=== PATIENT | female | born 1975 | race Hispanic/Latino ===

== ENCOUNTER 2018-02-12 06:03 | Emergency (ER) | payer SELFPAY ==
[2018-02-12] MEDS ORDERED: LIDOCAINE 1% MPF 5 ML VIAL ONE (06:25)
[2018-02-12] MEDS ORDERED: SMZ./TMP. 800/160 MG TABLET ONE (06:55)
[2018-02-12] MEDS ORDERED: PROMETHAZINE 25 MG TABLET ONE (06:55)
[2018-02-12] MEDS ORDERED: MEPERIDINE HCL 50 MG/ML AMP ONE (06:55)
--- NOTE | 2018-02-12 06:57 | ER ---
Nurse's Notes [facility] Name: Antoinette Sarmiento Age: 42 yrs Sex: Female : 1975 Arrival Date: 02/12/2018 Time: 06:08 Bed 18 Private MD: Diagnosis: Cutaneous abscess of head [any part, except face] Presentation: 02/12 06:13 Presenting complaint: Patient states: abscess to base of skull x 6 days. Purulent aa1 drainage noted. Transition of care: patient was not received from another setting of care. Onset of symptoms was February 05, 2018. Risk Assessment: Do you want to hurt yourself or someone else? Patient reports no desire to harm self or others. Initial Sepsis Screen: Does the patient meet any 2 criteria? No. Patient's initial sepsis screen is negative. Does the patient have a suspected source of infection? Yes: Skin breakdown/wound. Care prior to arrival: None. 06:13 Method Of Arrival: Ambulatory aa1 06:13 Acuity: EUGENE 3 aa1 Historical: - Allergies: 06:14 No Known Allergies; aa1 - Home Meds: 06:14 None [Active]; aa1 - PMHx: 06:14 None; aa1 - PSHx: 06:14 None; aa1 - Immunization history:: Adult Immunizations unknown. - Social history:: Smoking status: Patient/guardian denies using tobacco. - Ebola Screening: : No symptoms or risks identified at this time. Screenin:26 Abuse screen: Denies threats or abuse. Denies injuries from another. Nutritional lp1 screening: No deficits noted. Tuberculosis screening: No symptoms or risk factors identified. Fall Risk None identified. Assessment: 06:25 General: Appears uncomfortable, Behavior is appropriate for age. Pain: Complains of lp1 pain in base of the skull Pain currently is 10 out of 10 on a pain scale. Quality of pain is described as burning. Neuro: Level of Consciousness is awake, alert, obeys commands. Cardiovascular: Patient's skin is warm and dry. Respiratory: Respiratory effort is even, unlabored. GI: No signs and/or symptoms were reported involving the gastrointestinal system. : No signs and/or symptoms were reported regarding the genitourinary system. EENT: No signs and/or symptoms were reported regarding the EENT system. Derm: Abscess located on base of the skull is half dollar sized. Musculoskeletal: Circulation, motion, and sensation intact. Vital Signs: 06:14 BP 195 / 93; Pulse 91; Resp 18; Temp 98.7; Pulse Ox 98% ; Weight 108.86 kg; Height 5 aa1 ft. 2 in. (157.48 cm); Pain 10/10; 06:26 BP 174 / 98; Pulse 92; Resp 18; Pulse Ox 99% on R/A; lp1 06:14 Body Mass Index 43.90 (108.86 kg, 157.48 cm) aa1 ED Course: 06:08 Patient arrived in ED. al2 06:12 Taiwo Clark PA is PHCP. jr8 06:12 Osiel Ramsay MD is Attending Physician. jr8 06:14 Triage completed. aa1 06:14 Arm band placed on right wrist. Patient placed in an exam room, on a stretcher. aa1 06:18 Opal Zambrano, RN is Primary Nurse. lp1 06:26 Patient has correct armband on for positive identification. lp1 06:38 Assist provider with I \T\ D: of an abscess on posterior neck Set up I\T\D tray. Performed lp 1 by Taiwo YA Culture sent to lab. Wound packed. iodoform gauze. 08:30 Patient did not have IV access during this emergency room visit. ph Administered Medications: 06:38 Drug: Lidocaine (1 %) 1 vials Volume: 5 ml; Route: Infiltration; lp1 08:00 Follow up: Response: No adverse reaction ph 07:06 Drug: Bactrim (160 mg-800 mg (DS) 1 tablet Route: PO; lp1 08:00 Follow up: Response: No adverse reaction ph 07:06 Drug: Demerol 50 mg Route: IM; Site: right deltoid; lp1 08:00 Follow up: Response: No adverse reaction ph 07:06 Drug: Phenergan 25 mg Route: PO; lp1 08:00 Follow up: Response: No adverse reaction ph Outcome: 06:57 Discharge ordered by . jr8 07:52 Patient left the ED. ph 07:52 Discharged to home ambulatory. ph 07:52 Condition: good 07:52 Discharge instructions given to patient, Instructed on discharge instructions, follow up and referral plans. medication usage, Demonstrated understanding of instructions, follow-up care, medications, Prescriptions given X 2. Addendum: 02/15/2018 07:14 Addendum: Culture Results: Positive wound culture. No further action required. Bacteria s s sensitive to prescribed antibiotic. Signatures: Ruma Young, RN RN aa1 Madhavi Albert RN RN ss Opal Zambrano RN RN lp1 Taiwo Clark PA PA jr8 Tierra Osullivan RN RN [facility], Mireille mora
--- NOTE | 2018-02-12 06:57 | EDPHYS ---
Physician Documentation [facility] Name: Antoinette Sarmiento Age: 42 yrs Sex: Female : 1975 Arrival Date: 02/12/2018 Time: 06:08 Bed 18 Private MD: ED Physician Osiel Ramsay HPI: 02/12 07:22 This 42 yrs old Female presents to ER via Ambulatory with complaints of jr8 Abscess. 07:22 The patient presents with an abscess of the scalp. Description: The affected area is jr8 moderate sized, well demarcated, draining, erythematous, swollen, tense, warm. Onset: The symptoms/episode began/occurred gradually, 1 week(s) ago. Possible cause(s): unknown. Associated signs and symptoms: The patient has no apparent associated signs or symptoms. Modifying factors: the symptoms are alleviated by nothing, the symptoms are aggravated by pressure, squeezing the lesion and expressing the contents, touching. Severity of symptoms: At their worst the symptoms were moderate, in the emergency department the symptoms are unchanged. The patient has not experienced similar symptoms in the past. The patient has not recently seen a physician. Historical: - Allergies: 06:14 No Known Allergies; aa1 - Home Meds: 06:14 None [Active]; aa1 - PMHx: 06:14 None; aa1 - PSHx: 06:14 None; aa1 - Immunization history:: Adult Immunizations unknown. - Social history:: Smoking status: Patient/guardian denies using tobacco. - Ebola Screening: : No symptoms or risks identified at this time. ROS: 07:22 Eyes: Negative for injury, pain, redness, and discharge, ENT: Negative for injury, jr8 pain, and discharge, Neck: Negative for injury, pain, and swelling, Cardiovascular: Negative for chest pain, palpitations, and edema, Respiratory: Negative for shortness of breath, cough, wheezing, and pleuritic chest pain, Abdomen/GI: Negative for abdominal pain, nausea, vomiting, diarrhea, and constipation, Back: Negative for injury and pain, MS/Extremity: Negative for injury and deformity, Neuro: Negative for headache, weakness, numbness, tingling, and seizure. 07:41 Skin: Positive for abscess. jr8 Exam: 07:40 Head/Face: Normocephalic, atraumatic. Eyes: Pupils equal round and reactive to light, jr8 extra-ocular motions intact. Lids and lashes normal. Conjunctiva and sclera are non-icteric and not injected. Cornea within normal limits. Periorbital areas with no swelling, redness, or edema. ENT: Nares patent. No nasal discharge, no septal abnormalities noted. Tympanic membranes are normal and external auditory canals are clear. Oropharynx with no redness, swelling, or masses, exudates, or evidence of obstruction, uvula midline. Mucous membranes moist. Neck: Trachea midline, no thyromegaly or masses palpated, and no cervical lymphadenopathy. Supple, full range of motion without nuchal rigidity, or vertebral point tenderness. No Meningismus. Cardiovascular: Regular rate and rhythm with a normal S1 and S2. No gallops, murmurs, or rubs. Normal PMI, no JVD. No pulse deficits. Respiratory: Lungs have equal breath sounds bilaterally, clear to auscultation and percussion. No rales, rhonchi or wheezes noted. No increased work of breathing, no retractions or nasal flaring. Abdomen/GI: Soft, non-tender, with normal bowel sounds. No distension or tympany. No guarding or rebound. No evidence of tenderness throughout. Back: No spinal tenderness. No costovertebral tenderness. Full range of motion. MS/ Extremity: Pulses equal, no cyanosis. Neurovascular intact. Full, normal range of motion. Neuro: Awake and alert, GCS 15, oriented to person, place, time, and situation. Cranial nerves II-XII grossly intact. Motor strength 5/5 in all extremities. Sensory grossly intact. Cerebellar exam normal. Normal gait. 07:40 Skin: abscess, that is moderate sized, of the scalp and base of the skull, with drainage, with fluctuance. Vital Signs: 06:14 BP 195 / 93; Pulse 91; Resp 18; Temp 98.7; Pulse Ox 98% ; Weight 108.86 kg; Height 5 aa1 ft. 2 in. (157.48 cm); Pain 10/10; 06:26 BP 174 / 98; Pulse 92; Resp 18; Pulse Ox 99% on R/A; lp1 06:14 Body Mass Index 43.90 (108.86 kg, 157.48 cm) aa1 Procedures: 06:52 I \T\ D: Incision and drainage was performed for an abscess of the base of the skull jr8 Prepped with Betadine, Anesthetized with 2 ml's 1% Lidocaine. Incised with #11 blade. Drained moderate amount purulent fluid. bloody fluid. Loculations removed. Cultures obtained. Abscess cavity explored. Packed with iodoform gauze, Dressing: sterile 4x4 gauze, the patient tolerated the procedure well. MDM: 06:12 Patient medically screened. jr8 06:53 Data reviewed: vital signs, nurses notes, lab test result(s), and as a result, I will jr8 discharge patient. Data interpreted: Pulse oximetry: on room air is 99 %. Interpretation: normal. Counseling: I had a detailed discussion with the patient and/or guardian regarding: the historical points, exam findings, and any diagnostic results supporting the discharge/admit diagnosis, the need for outpatient follow up, a family practitioner, to return to the emergency department if symptoms worsen or persist or if there are any questions or concerns that arise at home. 02/12 06:27 Order name: Wound Culture lp1 Administered Medications: 06:38 Drug: Lidocaine (1 %) 1 vials Volume: 5 ml; Route: Infiltration; lp1 08:00 Follow up: Response: No adverse reaction ph 07:06 Drug: Bactrim (160 mg-800 mg (DS) 1 tablet Route: PO; lp1 08:00 Follow up: Response: No adverse reaction ph 07:06 Drug: Demerol 50 mg Route: IM; Site: right deltoid; lp1 08:00 Follow up: Response: No adverse reaction ph 07:06 Drug: Phenergan 25 mg Route: PO; lp1 08:00 Follow up: Response: No adverse reaction ph Disposition: 19:20 Co-signature as Attending Physician, Osiel Ramsay MD. rn Disposition: 02/12/18 06:57 Discharged to Home. Impression: Cutaneous abscess of head [any part, except face]. - Condition is Stable. - Discharge Instructions: Abscess, Incision and Drainage. - Prescriptions for Tylenol- Codeine #3 300-30 mg Oral Tablet - take 2 tablets by ORAL route every 6 hours As needed; 20 tablet. Bactrim DS 800- 160 mg Oral Tablet - take 1 tablet by ORAL route every 12 hours for 10 days; 20 tablet. - Medication Reconciliation Form, Thank You Letter, Antibiotic Education, Prescription Opioid Use, Work release form form. - Follow up: Emergency Department; When: 48 Hours; Reason: Recheck today's complaints, Continuance of care, Re-evaluation by your physician. - Problem is new. - Symptoms have improved. Signatures: Dispatcher [employer] EDMS Ruma Young, LORNA RN aa1 Osiel Ramsay MD MD rn Pena, Laura, RN RN lp1 Taiwo Clark PA PA jr8 Tierra Osullivan RN RN ph Corrections: (The following items were deleted from the chart) 07:41 07:22 Eyes: Negative for injury, pain, redness, and discharge, ENT: Negative for jr8 injury, pain, and discharge, Neck: Negative for injury, pain, and swelling, Cardiovascular: Negative for chest pain, palpitations, and edema, Respiratory: Negative for shortness of breath, cough, wheezing, and pleuritic chest pain, Back: Negative for injury and pain, MS/Extremity: Negative for injury and deformity, Skin: Negative for injury, rash, and discoloration, Neuro: Negative for headache, weakness, numbness, tingling, and seizure, jr8 07:41 07:22 Abdomen/GI: Positive for abdominal pain, nausea and vomiting, Negative for jr8 diarrhea, abdominal distension, anorexia, dysphagia, hematemesis, black/tarry stool, rectal pain, rectal bleeding, bowel incontinence, flatulence, jr8 07:41 07:22 Eyes: Pupils equal round and reactive to light, extra-ocular motions intact. Lids jr8 and lashes normal. Conjunctiva and sclera are non-icteric and not injected. Cornea within normal limits. Periorbital areas with no swelling, redness, or edema. ENT: Nares patent. No nasal discharge, no septal abnormalities noted. Tympanic membranes are normal and external auditory canals are clear. Oropharynx with no redness, swelling, or masses, exudates, or evidence of obstruction, uvula midline. Mucous membranes moist. Neck: Trachea midline, no thyromegaly or masses palpated, and no cervical lymphadenopathy. Supple, full range of motion without nuchal rigidity, or vertebral point tenderness. No Meningismus. Cardiovascular: Regular rate and rhythm with a normal S1 and S2. No gallops, murmurs, or rubs. Normal PMI, no JVD. No pulse deficits. Respiratory: Lungs have equal breath sounds bilaterally, clear to auscultation and percussion. No rales, rhonchi or wheezes noted. No increased work of breathing, no retractions or nasal flaring. Back: No spinal tenderness. No costovertebral tenderness. Full range of motion. Skin: Warm, dry with normal turgor. Normal color with no rashes, no lesions, and no evidence of cellulitis. MS/ Extremity: Pulses equal, no cyanosis. Neurovascular intact. Full, normal range of motion. Neuro: Awake and alert, GCS 15, oriented to person, place, time, and situation. Cranial nerves II-XII grossly intact. Motor strength 5/5 in all extremities. Sensory grossly intact. Cerebellar exam normal. Normal gait. 8 07:41 07:22 Abdomen/GI: Inspection: abdomen appears normal, scar(s), are noted in the jr8 anterior aspect of right lateral abdomen and anterior aspect of left lateral abdomen, Bowel sounds: active, all quadrants, Palpation: soft, in all quadrants, moderate abdominal tenderness, in the right upper quadrant, mid abdominal, mass, is not appreciated, rebound tenderness, is not appreciated, voluntary guarding, is not appreciated, involuntary guarding, is not appreciated, no appreciated organomegaly, Indicators: McBurney's point is not tender, Abernathy's sign is negative, Rovsing's sign is negative, jr8 07:52 06:57 02/12/2018 06:57 Discharged to Home. Impression: Cutaneous abscess of head [any ph part, except face]. Condition is Stable. Forms are Medication Reconciliation Form, Thank You Letter, Antibiotic Education, Prescription Opioid Use. Follow up: Emergency Department; When: 48 Hours; Reason: Recheck today's complaints, Continuance of care, Re-evaluation by your physician. Problem is new. Symptoms have improved. jr8
== END 2018-02-12 07:52 | disposition home or self-care (01) ==
LOC: ER 06:03
PROC: 0H90XZZ Drainage of Scalp Skin, External Approach (ICD-10-PCS; principal; 2018-02-12)
DX: L02.811 Cutaneous abscess of head [any part, except face] (principal)
CPT/HCPCS: 87070; 87077; 87186; 87205; 96372; 99284; J2175

== ENCOUNTER 2018-02-14 08:32 | Emergency (ER) | payer SELFPAY ==
--- NOTE | 2018-02-14 09:48 | EDPHYS ---
Physician Documentation [facility] Name: Antoinette Sarmiento Age: 42 yrs Sex: Female : 1975 Arrival Date: 02/14/2018 Time: 08:48 Bed 20 Private MD: None, None ED Physician Adi Garcia HPI: 02/14 08:54 This 42 yrs old Female presents to ER via Unassigned with complaints of kav Abscess Recheck. 09:24 Patient presents to ED for recheck of: abscess. The affected area is on the base of the kav skull. Previous treatment: The patient was initially treated 2 day(s) ago, the care was rendered at [facility], Treatment type: The patient's original treatment included an I\\T\\D, Outpatient prescription(s): The patient was given prescription(s) for Bactrim. . 09:37 The patient has experienced similar episodes in the past, several times. The patient kav has been recently seen by a physician: The patient has been recently seen at the [facility] Emergency Department, this week. 09:38 Progress: The patient reports mild improvement. kav Historical: - Allergies: 09:22 No Known Allergies; hb - Home Meds: 09:22 None [Active]; hb - PMHx: 09:22 None; hb - PSHx: 09:22 None; hb - Immunization history:: Adult Immunizations up to date. - Social history:: Smoking status: Patient/guardian denies using tobacco. - Ebola Screening: : No symptoms or risks identified at this time. - Family history:: not pertinent. - Hospitalizations: : No recent hospitalization is reported. - History obtained from: son. ROS: 09:38 Constitutional: Negative for fever, chills, and weight loss, Eyes: Negative for injury, kav pain, redness, and discharge, ENT: Negative for injury, pain, and discharge, Neck: Negative for injury, pain, and swelling, Cardiovascular: Negative for chest pain, palpitations, and edema, Respiratory: Negative for shortness of breath, cough, wheezing, and pleuritic chest pain, Abdomen/GI: Negative for abdominal pain, nausea, vomiting, diarrhea, and constipation, Back: Negative for injury and pain, : Negative for injury, bleeding, discharge, and swelling, MS/Extremity: Negative for injury and deformity, Neuro: Negative for headache, weakness, numbness, tingling, and seizure, Psych: Negative for depression, anxiety, suicide ideation, homicidal ideation, and hallucinations, Allergy/Immunology: Negative for hives, rash, and allergies, Endocrine: Negative for neck swelling, polydipsia, polyuria, polyphagia, and marked weight changes, Hematologic/Lymphatic: Negative for swollen nodes, abnormal bleeding, and unusual bruising. 09:38 Skin: Positive for abscess, of the base of the skull. Exam: 09:38 Constitutional: This is a well developed, well nourished patient who is awake, alert, kav and in no acute distress. Head/Face: Normocephalic, atraumatic. Eyes: Pupils equal round and reactive to light, extra-ocular motions intact. Lids and lashes normal. Conjunctiva and sclera are non-icteric and not injected. Cornea within normal limits. Periorbital areas with no swelling, redness, or edema. ENT: Nares patent. No nasal discharge, no septal abnormalities noted. Tympanic membranes are normal and external auditory canals are clear. Oropharynx with no redness, swelling, or masses, exudates, or evidence of obstruction, uvula midline. Mucous membranes moist. Neck: Trachea midline, no thyromegaly or masses palpated, and no cervical lymphadenopathy. Supple, full range of motion without nuchal rigidity, or vertebral point tenderness. No Meningismus. Chest/axilla: Normal chest wall appearance and motion. Nontender with no deformity. No lesions are appreciated. Cardiovascular: Regular rate and rhythm with a normal S1 and S2. No gallops, murmurs, or rubs. Normal PMI, no JVD. No pulse deficits. Respiratory: Lungs have equal breath sounds bilaterally, clear to auscultation and percussion. No rales, rhonchi or wheezes noted. No increased work of breathing, no retractions or nasal flaring. Abdomen/GI: Soft, non-tender, with normal bowel sounds. No distension or tympany. No guarding or rebound. No evidence of tenderness throughout. Back: No spinal tenderness. No costovertebral tenderness. Full range of motion. MS/ Extremity: Pulses equal, no cyanosis. Neurovascular intact. Full, normal range of motion. Neuro: Awake and alert, GCS 15, oriented to person, place, time, and situation. Cranial nerves II-XII grossly intact. Motor strength 5/5 in all extremities. Sensory grossly intact. Cerebellar exam normal. Normal gait. Psych: Awake, alert, with orientation to person, place and time. Behavior, mood, and affect are within normal limits. 09:38 Skin: abscess, that is moderate sized, with drainage, that is purulent. Vital Signs: 09:21 BP 188 / 98; Pulse 100; Resp 18; Temp 98.2; Pulse Ox 100% on R/A; Pain 8/10; hb Procedures: 09:38 Performed Wound Care: 08/23 " Iodoform gauze approximately 2.5 inches removed from kav abscess area base of scalp. Wound was originally I\\T\\ D and packed with Iodoform Gauze on 02/12/18. Wound was cleansed with normal saline solution and repacked with Iodoform Gauze and dressed with a single band aide. Patient was advised to continue current antibiotic therapy with Bactrim DS and continue current pain medication with Tylenol # 3 as directed. She was advised to take OTC Ibuprofen as needed and as directed for breakthrough pain. Advised to f/u with [facility] in 2 days for further wound care and evaluation.. MDM: 09:24 Medical screening is not applicable. [facility] 09:38 Data reviewed: vital signs, nurses notes, old medical records, wound culture is kav sensitive to current abx therapy: Bactrim DS. Administered Medications: No medications were administered Disposition: 10:37 Co-signature as Attending Physician, Adi Garcia MD I agree with the assessment and kdr plan of care. Disposition: 02/14/18 09:47 Discharged to Home. Impression: Cutaneous abscess of head [any part, except face]. - Condition is Stable. - Discharge Instructions: Abscess. - Medication Reconciliation Form, Thank You Letter, Antibiotic Education, Prescription Opioid Use form. - Follow up: Private Physician; When: 2 - 3 days; Reason: Wound Recheck, Recheck today's complaints, Continuance of care, Re-evaluation by your physician. - Problem is an ongoing problem. - Symptoms have improved. - Notes: f/u with [facility]/PCP in 2-3 days for recheck of wound and repacking of wound and continued care continue current antibiotic therapy: BactrimDS and current pain therapy: Tylenol # 3 as directed Signatures: Adi Garcia MD MD kdr Vern, Katherine, STORYBOARD ARTIST STORYBOARD ARTIST Thuy Rm RN RN Corrections: (The following items were deleted from the chart) 09:40 09:24 Progress: The patient reports excellent improvement in the affected area. There kav has been resolution, improvement, or non-development of any drainage, fever, pain, redness or swelling, kav 10:05 09:47 02/14/2018 09:47 Discharged to Home. Impression: Cutaneous abscess of head [any hb part, except face]. Condition is Stable. Forms are Medication Reconciliation Form, Thank You Letter, Antibiotic Education, Prescription Opioid Use. Follow up: Private Physician; When: 2 - 3 days; Reason: Wound Recheck, Recheck today's complaints, Continuance of care, Re-evaluation by your physician. Problem is an ongoing problem. Symptoms have improved. kav
--- NOTE | 2018-02-14 09:48 | ER ---
Nurse's Notes [facility] Name: Antoinette Sarmiento Age: 42 yrs Sex: Female : 1975 Arrival Date: 02/14/2018 Time: 08:48 Bed 20 Private MD: None, None Diagnosis: Cutaneous abscess of head [any part, except face] Presentation: 02/14 09:20 Presenting complaint: Seen in ED 2 days ago for wound to back of neck, told to come hb back today for wound recheck. Transition of care: patient was not received from another setting of care. Onset of symptoms is unknown. Risk Assessment: Do you want to hurt yourself or someone else? Patient reports no desire to harm self or others. Initial Sepsis Screen: Does the patient meet any 2 criteria? No. Patient's initial sepsis screen is negative. Does the patient have a suspected source of infection? No. Patient's initial sepsis screen is negative. Care prior to arrival: None. 09:20 Method Of Arrival: Ambulatory hb 09:20 Acuity: EUGENE 4 hb Historical: - Allergies: 09:22 No Known Allergies; hb - Home Meds: 09:22 None [Active]; hb - PMHx: 09:22 None; hb - PSHx: 09:22 None; hb - Immunization history:: Adult Immunizations up to date. - Social history:: Smoking status: Patient/guardian denies using tobacco. - Ebola Screening: : No symptoms or risks identified at this time. - Family history:: not pertinent. - Hospitalizations: : No recent hospitalization is reported. - History obtained from: son. Screenin:23 Abuse screen: Denies threats or abuse. Denies injuries from another. Nutritional hb screening: No deficits noted. Tuberculosis screening: No symptoms or risk factors identified. Fall Risk None identified. Assessment: 09:22 General: Appears in no apparent distress. Behavior is calm, cooperative. Pain: Pain hb currently is 8 out of 10 on a pain scale. Neuro: Level of Consciousness is awake, alert, obeys commands, Oriented to person, place, time, situation. Cardiovascular: Capillary refill < 3 seconds Patient's skin is warm and dry. Respiratory: Airway is patent Trachea midline Respiratory effort is even, unlabored, Respiratory pattern is regular, symmetrical. Derm: Wound noted Other: back of neck, dressing dry and intact. Vital Signs: 09:21 BP 188 / 98; Pulse 100; Resp 18; Temp 98.2; Pulse Ox 100% on R/A; Pain 8/10; hb ED Course: 08:48 Patient arrived in ED. mr 08:48 None, None is Private Physician. mr 08:54 [facility] kav 08:54 Adi Garcia MD is Attending Physician. kav 09:19 Thuy Salas, RN is Primary Nurse. hb 09:21 Triage completed. hb 09:22 Arm band placed on right wrist. hb 09:23 Patient has correct armband on for positive identification. Bed in low position. Call hb light in reach. Side rails up X 1. 10:04 No provider procedures requiring assistance completed. Patient did not have IV access hb during this emergency room visit. Administered Medications: No medications were administered Outcome: 09:47 Discharge ordered by . kav 10:04 Discharged to home ambulatory, with family. hb 10:04 Condition: stable 10:04 Discharge instructions given to patient, family, Instructed on discharge instructions, follow up and referral plans. medication usage, wound care, Demonstrated understanding of instructions, follow-up care, medications, wound care. 10:05 Patient left the ED. hb Signatures: Angi Claire FNP FNP kav Rivera, Maria Thuy Salas, RN RN hb
== END 2018-02-14 10:05 | disposition home or self-care (01) ==
LOC: ER 08:32
DX: L02.811 Cutaneous abscess of head [any part, except face] (principal)
CPT/HCPCS: 99281

== ENCOUNTER 2020-07-21 04:34 | Emergency (ER) | payer SELFPAY ==
--- NOTE | 2020-07-21 05:11 | ER ---
Nurse's Notes [facility] Name: Antoinette Sarmiento Age: 45 yrs Sex: Female : 1975 Arrival Date: 07/21/2020 Time: 04:40 Bed 4 Private MD: Diagnosis: Acute bronchitis Presentation: 07/21 04:55 Chief complaint: Spouse and/or significant other states: she has fever and cough for 3 mg2 days. Coronavirus screen: Client denies travel out of the [place] in the last 14 days. Client presents with at least one sign or symptom that may indicate coronavirus-19. Provider contacted for isolation considerations. Ebola Screen: No symptoms or risks identified at this time. Initial Sepsis Screen: Does the patient meet any 2 criteria? No. Patient's initial sepsis screen is negative. Does the patient have a suspected source of infection? No. Patient's initial sepsis screen is negative. Risk Assessment: Do you want to hurt yourself or someone else? Patient reports no desire to harm self or others. 04:55 Method Of Arrival: Ambulatory mg2 04:55 Acuity: EUGENE 4 mg2 Triage Assessment: 05:02 General: Appears. mg2 Historical: - Allergies: 04:59 No Known Allergies; mg2 - Home Meds: 04:59 amlodipine oral [Active]; Metformin Oral [Active]; Iron CR Oral [Active]; mg2 - PMHx: 04:59 Diabetes - NIDDM; Hypertension; Anemia; mg2 - PSHx: 04:59 None; mg2 - Immunization history:: Flu vaccine is not up to date. - Social history:: Smoking status: Patient denies any tobacco usage or history of. Patient/guardian denies using alcohol, street drugs, IV drugs, Patient/guardian denies using. - Family history:: not pertinent. Screenin:53 Abuse screen: Denies threats or abuse. Denies injuries from another. Nutritional mg2 screening: No deficits noted. Tuberculosis screening: No symptoms or risk factors identified. Fall Risk None identified. Assessment: 05:52 General: Appears in no apparent distress. comfortable, Behavior is calm, cooperative. mg2 Pain: Denies pain. Neuro: Level of Consciousness is awake, alert, obeys commands, Oriented to person, place, time, situation. Cardiovascular: Capillary refill < 3 seconds Patient's skin is warm and dry. Respiratory: Airway is patent Respiratory effort is even, unlabored, Respiratory pattern is regular, symmetrical. Respiratory: Reports cough that is. GI: No deficits noted. : No signs and/or symptoms were reported regarding the genitourinary system. EENT: No signs and/or symptoms were reported regarding the EENT system. Derm: Skin is intact, is healthy with good turgor, Skin is pink, warm \T\ dry. normal. Musculoskeletal: Circulation, motion, and sensation intact. Capillary refill < 3 seconds. Vital Signs: 04:55 Weight 108.86 kg; Height 5 ft. 6 in. (167.64 cm); mg2 05:10 BP 179 / 92; Pulse 102; Resp 16; Temp 97.5(TE); Pulse Ox 96% on R/A; Pain 0/10; wh 04:55 Body Mass Index 38.74 (108.86 kg, 167.64 cm) mg2 ED Course: 04:40 Patient arrived in ED. cl3 04:54 Pablito Eason MD is Attending Physician. ma2 04:55 Ulises Garza RN is Primary Nurse. mg2 04:56 Triage completed. mg2 04:59 Arm band placed on. mg2 05:53 No provider procedures requiring assistance completed. covis test sent to lab. Patient mg2 did not have IV access during this emergency room visit. 05:54 Patient has correct armband on for positive identification. mg2 Administered Medications: No medications were administered Outcome: 05:10 Discharge ordered by . ma2 05:54 Discharged to home ambulatory. mg2 05:54 Condition: stable 05:54 Discharge instructions given to patient, family, Instructed on discharge instructions, follow up and referral plans. medication usage, Demonstrated understanding of instructions, follow-up care, medications, Prescriptions given X 3. 05:54 Patient left the ED. mg2 Addendum: 07/23/2020 10:02 Addendum: COVID-19 Result: Positive result giiven to ED physician to notify pt. i w Physician: Chase Michelle MD Physician was able to contact pt and pt was notified of positive COVID-19 swab result. Physician answered pt questions. Signatures: Lianna Brandon RN RN Kj Gaviria Pablito Eason MD MD ia2 Ulises Garza RN RN [facility] Sid Barrientos cl3 Corrections: (The following items were deleted from the chart) 07/21 05:02 04:55 Acuity: EUGENE 3 mg2 mg2
--- NOTE | 2020-07-21 05:11 | EDPHYS ---
Physician Documentation [facility] Name: Antoinette Sarmiento Age: 45 yrs Sex: Female : 1975 Arrival Date: 07/21/2020 Time: 04:40 Bed 4 Private MD: ED Physician Pablito Eason HPI: 07/21 05:09 This 45 yrs old Female presents to ER via Ambulatory with complaints of Fever, ma2 Cough. 05:09 The patient reports fever, not measured (subjective). Onset: The symptoms/episode ma2 began/occurred gradually, 1 day(s) ago. Associated signs and symptoms: Pertinent negatives: altered mental status, backache, chills, cough. Severity of symptoms: At their worst the symptoms were mild in the emergency department the symptoms are unchanged. The patient has not experienced similar symptoms in the past. Historical: - Allergies: 04:59 No Known Allergies; mg2 - Home Meds: 04:59 amlodipine oral [Active]; Metformin Oral [Active]; Iron CR Oral [Active]; mg2 - PMHx: 04:59 Diabetes - NIDDM; Hypertension; Anemia; mg2 - PSHx: 04:59 None; mg2 - Immunization history:: Flu vaccine is not up to date. - Social history:: Smoking status: Patient denies any tobacco usage or history of. Patient/guardian denies using alcohol, street drugs, IV drugs, Patient/guardian denies using. - Family history:: not pertinent. ROS: 05:09 Constitutional: Negative for fever, chills, and weight loss. ma2 05:09 All other systems are negative. Exam: 05:09 Constitutional: This is a well developed, well nourished patient who is awake, alert, ma2 and in no acute distress. Head/Face: Normocephalic, atraumatic. Eyes: Pupils equal round and reactive to light, extra-ocular motions intact. Lids and lashes normal. Conjunctiva and sclera are non-icteric and not injected. Cornea within normal limits. Periorbital areas with no swelling, redness, or edema. ENT: Nares patent. No nasal discharge, no septal abnormalities noted. Tympanic membranes are normal and external auditory canals are clear. Oropharynx with no redness, swelling, or masses, exudates, or evidence of obstruction, uvula midline. Mucous membranes moist. Neck: Trachea midline, no thyromegaly or masses palpated, and no cervical lymphadenopathy. Supple, full range of motion without nuchal rigidity, or vertebral point tenderness. No Meningismus. Chest/axilla: Normal chest wall appearance and motion. Nontender with no deformity. No lesions are appreciated. Cardiovascular: Regular rate and rhythm with a normal S1 and S2. No gallops, murmurs, or rubs. Normal PMI, no JVD. No pulse deficits. Respiratory: Lungs have equal breath sounds bilaterally, clear to auscultation and percussion. No rales, rhonchi or wheezes noted. No increased work of breathing, no retractions or nasal flaring. Abdomen/GI: Soft, non-tender, with normal bowel sounds. No distension or tympany. No guarding or rebound. No evidence of tenderness throughout. Back: No spinal tenderness. No costovertebral tenderness. Full range of motion. Skin: Warm, dry with normal turgor. Normal color with no rashes, no lesions, and no evidence of cellulitis. MS/ Extremity: Pulses equal, no cyanosis. Neurovascular intact. Full, normal range of motion. Neuro: Awake and alert, GCS 15, oriented to person, place, time, and situation. Cranial nerves II-XII grossly intact. Motor strength 5/5 in all extremities. Sensory grossly intact. Cerebellar exam normal. Normal gait. Vital Signs: 04:55 Weight 108.86 kg; Height 5 ft. 6 in. (167.64 cm); mg2 05:10 BP 179 / 92; Pulse 102; Resp 16; Temp 97.5(TE); Pulse Ox 96% on R/A; Pain 0/10; wh 04:55 Body Mass Index 38.74 (108.86 kg, 167.64 cm) mg2 MDM: 04:54 Patient medically screened. ma2 05:09 Differential diagnosis: viral Infection, URI, bronchitis, pneumonia gastroenteritis. ma2 Data reviewed: vital signs, nurses notes. Counseling: I had a detailed discussion with the patient and/or guardian regarding: the historical points, exam findings, and any diagnostic results supporting the discharge/admit diagnosis, the presence of at least one elevated blood pressure reading (>120/80) during this emergency department visit, the need for outpatient follow up. Response to treatment: the patient's symptoms have markedly improved after treatment. 07/21 05:11 Order name: SYLVIA ma2 Administered Medications: No medications were administered Disposition: 07/21/20 05:10 Discharged to Home. Impression: Acute bronchitis. - Condition is Stable. - Discharge Instructions: Acute Bronchitis, Adult. - Prescriptions for Zithromax Z- Troy 250 mg Oral Tablet - take 1 tablet by ORAL route as directed for 5 days Day 1 - take two (2) tablets one time. Day 2, 3, 4 , 5 take one (1) tablet once daily.; 6 tablet. Medrol (Troy) 4 mg Oral Tablets, Dose Pack - take 1 tablet by ORAL route as directed - follow package instructions; 1 packet. Albuterol Sulfate 90 mcg/actuation - inhale 1-2 puff by INHALATION route every 4-6 hours; 1 Inhaler. - Medication Reconciliation Form, Thank You Letter, Antibiotic Education, Prescription Opioid Use, Work release form form. - Follow up: Private Physician; When: Tomorrow; Reason: Continuance of care. Signatures: Dispatcher [employer] EDMS Pablito Eason MD MD ma2 Ulises Garza RN RN mg2 Corrections: (The following items were deleted from the chart) 05:54 05:10 07/21/2020 05:10 Discharged to Home. Impression: Acute bronchitis. Condition is mg2 Stable. Forms are Medication Reconciliation Form, Thank You Letter, Antibiotic Education, Prescription Opioid Use. Follow up: Private Physician; When: Tomorrow; Reason: Continuance of care. ma2
== END 2020-07-21 05:54 | disposition home or self-care (01) ==
LOC: ER 04:34
DX: U07.1 COVID-19 (principal); J20.9 Acute bronchitis, unspecified; I10 Essential (primary) hypertension; E11.9 Type 2 diabetes mellitus without complications
CPT/HCPCS: 99282; U0002

== ENCOUNTER 2021-05-25 16:39 | Emergency (ER) | payer SELFPAY ==
--- NOTE | 2021-05-25 19:45 | RAD REPORT ---
EXAM DESCRIPTION: US - Extremity Venous Uni Ltd - 05/25/2021 7:34 pm CLINICAL HISTORY: PAIN Leg swelling and edema. COMPARISON: No comparisons FINDINGS: Left lower extremity venous system was interrogated with Doppler technique. Normal flow, c ompressibility and augmentation was noted. There is no DVT present. IMPRESSION: No evidence of left lower extremity deep venous thrombosis.
--- NOTE | 2021-05-25 20:01 | EDPHYS ---
Physician Documentation [facility] Name: Antoinette Sarmiento Age: 46 yrs Sex: Female : 1975 Arrival Date: 05/25/2021 Time: 16:39 Bed 11 Private MD: ED Physician Chase Michelle HPI: 05/25 19:15 This 46 yrs old Female presents to ER via Wheelchair with complaints of Leg jr8 Pain. 19:15 Onset: The symptoms/episode began/occurred gradually, 3 week(s) ago, and became worse jr8 today. Modifying factors: The symptoms are alleviated by nothing. the symptoms are aggravated by movement, weight bearing. Associated signs and symptoms: The patient has no apparent associated signs or symptoms. Severity of symptoms: At their worst the symptoms were moderate, in the emergency department the symptoms are unchanged. The patient has not experienced similar symptoms in the past. The patient has not recently seen a physician. This is a 46-year-old female patient that presented to the emergency room with left calf pain. Patient stated that she has had on and off pain for the past 3 weeks but that it had become acutely worsened today. Denies trauma.. DESIGNATED BROKER: 17:47 LMP N/A - Post-menopause jl7 Historical: - Allergies: 17:47 No Known Allergies; jl7 - Home Meds: 17:47 amlodipine oral [Active]; Metformin Oral [Active]; Iron CR Oral [Active]; glipizide 5 jl7 mg Oral tab [Active]; - PMHx: 17:47 Anemia; Diabetes - NIDDM; Hypertension; jl7 - PSHx: 17:47 None; jl7 - Immunization history:: Adult Immunizations up to date, Client reports receiving the 2nd dose of the Covid vaccine, Moderna. - Social history:: Smoking status: Patient denies any tobacco usage or history of. ROS: 19:15 Eyes: Negative for injury, pain, redness, and discharge, ENT: Negative for injury, jr8 pain, and discharge, Neck: Negative for injury, pain, and swelling, Cardiovascular: Negative for chest pain, palpitations, and edema, Respiratory: Negative for shortness of breath, cough, wheezing, and pleuritic chest pain, Abdomen/GI: Negative for abdominal pain, nausea, vomiting, diarrhea, and constipation, Back: Negative for injury and pain, Skin: Negative for injury, rash, and discoloration, Neuro: Negative for headache, weakness, numbness, tingling, and seizure. 19:15 MS/extremity: Positive for pain, tenderness, of the left leg. Exam: 19:15 Constitutional: This is a well developed, well nourished patient who is awake, alert, jr8 and in no acute distress. Cardiovascular: Regular rate and rhythm with a normal S1 and S2. No gallops, murmurs, or rubs. Normal PMI, no JVD. No pulse deficits. Respiratory: Lungs have equal breath sounds bilaterally, clear to auscultation and percussion. No rales, rhonchi or wheezes noted. No increased work of breathing, no retractions or nasal flaring. Abdomen/GI: Soft, non-tender, with normal bowel sounds. No distension or tympany. No guarding or rebound. No evidence of tenderness throughout. Back: No spinal tenderness. No costovertebral tenderness. Full range of motion. Skin: Warm, dry with normal turgor. Normal color with no rashes, no lesions, and no evidence of cellulitis. Neuro: Awake and alert, GCS 15, oriented to person, place, time, and situation. Cranial nerves II-XII grossly intact. Motor strength 5/5 in all extremities. Sensory grossly intact. 19:15 Musculoskeletal/extremity: Extremities: grossly normal except: noted in the left calf: tenderness, ROM: no acute changes, Circulation is intact in all extremities. Pulses: noted to be 2+ in the right radial artery, right posterior tibial artery, right dorsalis pedis artery, left radial artery, left posterior tibial artery and left dorsalis pedis artery, Sensation intact. DVT Exam: no swelling, negative Homans' sign noted on exam, no appreciated bluish discoloration, no erythema, no increased warmth, pain, that is mild, of the left leg, tenderness, that is mild, of the left leg, Calves: have equal circumference, are tender, on left. Vital Signs: 17:46 BP 173 / 95; Pulse 80; Resp 17; Temp 98.3; Pulse Ox 99% ; Weight 113.4 kg; Height 5 ft. jl7 6 in. (167.64 cm); Pain 9/10; 20:09 BP 164 / 79; Pulse 84; Resp 18; Temp 98.0; Pulse Ox 99% ; Pain 6/10; dc2 17:46 Body Mass Index 40.35 (113.40 kg, 167.64 cm) jl7 MDM: 18:13 Patient medically screened. jr8 19:59 Data reviewed: vital signs, nurses notes, radiologic studies, ultrasound. Data jr8 interpreted: Pulse oximetry: on room air is 99 %. Interpretation: normal. Counseling: I had a detailed discussion with the patient and/or guardian regarding: the historical points, exam findings, and any diagnostic results supporting the discharge/admit diagnosis, radiology results, the need for outpatient follow up, a orthopedic surgeon, to return to the emergency department if symptoms worsen or persist or if there are any questions or concerns that arise at home. ED course: Frida with patient that there is no evidence of deep venous thrombosis. Pulses present and normal to palpation on affected extremity. Unlikely to be arterial in nature. No infectious signs noted. Most likely musculoskeletal in nature. Recommended anti-inflammatory and to follow-up with PCP. If you persist to call for orthopedic appointment at that time. If worse to come back for further evaluation. Patient good with plan at this time.. 05/25 18:34 Order name: US Extremity Venous Unilateral Ltd; Complete Time: 19:56 jr8 Administered Medications: No medications were administered Disposition: 05/26 07:57 Co-signature as Attending Physician, Chase Michelle MD I agree with the assessment and joão plan of care. Disposition Summary: 05/25/21 20:00 Discharge Ordered Location: Home jr8 Problem: new jr8 Symptoms: have improved jr8 Condition: Stable jr8 Diagnosis - Pain in left lower leg jr8 Followup: jr8 - With: Private Physician - When: 5 - 6 days - Reason: Recheck today's complaints, Continuance of care, Re-evaluation by your physician Discharge Instructions: - Discharge Summary Sheet jr8 - Musculoskeletal Pain jr8 Forms: - Medication Reconciliation Form jr8 - Thank You Letter jr8 - Antibiotic Education jr8 - Prescription Opioid Use jr8 Signatures: Dispatcher [employer] Chase Gruber MD MD cha Roszak, Josh, PA PA jr8 Celestine Gunn, RN RN jl7
--- NOTE | 2021-05-25 20:01 | ER ---
Nurse's Notes [facility] Name: Antoinette Sarmiento Age: 46 yrs Sex: Female : 1975 Arrival Date: 05/25/2021 Time: 16:39 Bed 11 Private MD: Diagnosis: Pain in left lower leg Presentation: 05/25 17:46 Chief complaint: Patient's son or daughter states: Son reports pt's left leg from knee jl7 down has been hurting for a few weeks then this morning it was the worst and she is unable to walk on it now. Denies trauma. Coronavirus screen: At this time, the client does not indicate any symptoms associated with coronavirus-19. Ebola Screen: No symptoms or risks identified at this time. Initial Sepsis Screen: Does the patient meet any 2 criteria? No. Patient's initial sepsis screen is negative. Does the patient have a suspected source of infection? No. Patient's initial sepsis screen is negative. Risk Assessment: Do you want to hurt yourself or someone else? Patient reports no desire to harm self or others. Onset of symptoms is unknown. 17:46 Method Of Arrival: Wheelchair jl7 17:46 Acuity: EUGENE 3 jl7 Triage Assessment: 17:47 General: Appears in no apparent distress. uncomfortable, Behavior is calm, cooperative, jl7 appropriate for age. Pain: Complains of pain in left calf Pain currently is 9 out of 10 on a pain scale. CHAIRPERSON ANESTHESIOLOGY: 17:47 LMP N/A - Post-menopause jl7 Historical: - Allergies: 17:47 No Known Allergies; jl7 - Home Meds: 17:47 amlodipine oral [Active]; Metformin Oral [Active]; Iron CR Oral [Active]; glipizide 5 jl7 mg Oral tab [Active]; - PMHx: 17:47 Anemia; Diabetes - NIDDM; Hypertension; jl7 - PSHx: 17:47 None; jl7 - Immunization history:: Adult Immunizations up to date, Client reports receiving the 2nd dose of the Covid vaccine, Moderna. - Social history:: Smoking status: Patient denies any tobacco usage or history of. Screenin:58 Abuse screen: Denies threats or abuse. Denies injuries from another. Nutritional tc5 screening: No deficits noted. Tuberculosis screening: No symptoms or risk factors identified. Fall Risk None identified. Assessment: 17:57 General: Appears uncomfortable, Behavior is calm, cooperative, appropriate for age. tc5 Pain: Complains of pain in left calf. Neuro: No deficits noted. Cardiovascular: No deficits noted. Respiratory: No deficits noted. GI: No deficits noted. : No deficits noted. Musculoskeletal: Denies pain in, left calf pt reports left calf pain x 3 weeks, states the pain is worse today 9/10, denies injury to the area. Vital Signs: 17:46 BP 173 / 95; Pulse 80; Resp 17; Temp 98.3; Pulse Ox 99% ; Weight 113.4 kg; Height 5 ft. jl7 6 in. (167.64 cm); Pain 9/10; 20:09 BP 164 / 79; Pulse 84; Resp 18; Temp 98.0; Pulse Ox 99% ; Pain 6/10; dc2 17:46 Body Mass Index 40.35 (113.40 kg, 167.64 cm) jl7 ED Course: 16:39 Patient arrived in ED. as 17:47 Triage completed. jl7 17:47 Arm band placed on right wrist. jl7 17:54 Yudelka Sood, LORNA is Primary Nurse. tc5 18:13 Taiwo Clark PA is PHCP. jr8 18:13 Chase Michelle MD is Attending Physician. jr8 19:10 Patient taken to ultrasound. via wheelchair. tc5 19:10 Call light in reach. Adult w/ patient. tc5 19:10 Patient did not have IV access during this emergency room visit. tc5 19:30 Patient moved back from ultrasound. tc5 19:30 No provider procedures requiring assistance completed. tc5 19:33 US Extremity Venous Unilateral Ltd In Process Unspecified. EDMS 20:00 Nurse Practitioner and/or Physician Tow Picker to see patient. tc5 Administered Medications: No medications were administered Outcome: 20:00 Discharge ordered by . jr8 20:18 Discharged to home via wheelchair. tc5 20:18 Condition: stable 20:18 Discharge instructions given to patient, family, Instructed on discharge instructions, tc5 follow up and referral plans. 20:29 Patient left the ED. tc5 Signatures: Dispatcher [employer] EDMS Emelina Lerma Josh, PA PA jr8 Celestine Gunn RN RN jl7 Lu Ocampo, RN RN dc2 Indigo, Yudelka, RN RN tc5
[2021-05-25 20:43] VITALS: BP 173/95; TEMP 98.3; O2SAT 99
== END 2021-05-25 20:29 | disposition home or self-care (01) ==
LOC: ER 16:39
DX: M79.662 Pain in left lower leg (principal); I10 Essential (primary) hypertension; E11.9 Type 2 diabetes mellitus without complications
CPT/HCPCS: 93971; 99284

== ENCOUNTER 2021-08-03 02:10 | Inpatient (IN) | payer SELFPAY ==
[2021-08-03] MEDS ORDERED: ONDANSETRON 4 MG/2 ML VIAL ONE ×2 (02:47→12:54)
[2021-08-03] MEDS ORDERED: MORPHINE 2 MG/ML SYR ONE (02:47)
[2021-08-03] MEDS ORDERED: NA CHLORIDE 0.9% 2,000 ML ONE (02:48)
[2021-08-03] MEDS ORDERED: VANCOMYCIN 1 GM/VIAL ONE (02:48)
[2021-08-03] MEDS ORDERED: PIPERACIL/TAZO 3.375 GM VIAL IV ONE (02:48)
[2021-08-03] MEDS ORDERED: NA CHLORIDE 0.9% 0 ML ONE (02:48)
[2021-08-03] MEDS ORDERED: NA CHLORIDE 0.9% 250 ML ONE (02:48)
--- NOTE | 2021-08-03 02:51 | ER ---
Nurse's Notes [facility] Name: Antoinette Sarmiento Age: 46 yrs Sex: Female : 1975 Arrival Date: 08/03/2021 Time: 02:13 Bed 7 Private MD: Diagnosis: Cutaneous abscess of left axilla;Cutaneous abscess of right axilla;Type 2 diabetes mellitus with hyperglycemia;Fever, unspecified;Hypomagnesemia;Elevated white blood cell count Presentation: 08/03 02:40 Chief complaint: Spouse and/or significant other states: pt has been c/o body pain bb since yesterday she takes ibuprofen but the pain keeps coming back she has chills and sweats she has bilateral axilla abscesses which he "popped" last night with a lot of drainage. Coronavirus screen: At this time, the client does not indicate any symptoms associated with coronavirus-19. Ebola Screen: No symptoms or risks identified at this time. Initial Sepsis Screen: Does the patient meet any 2 criteria? Temp <36.0*C (96.8*F)) or > 38.3*C (100.9*F). HR > 90 bpm. Yes Does the patient have a suspected source of infection? Yes: If YES to both, name of provider notified: Chase Michelle MD. Risk Assessment: Do you want to hurt yourself or someone else? Patient reports no desire to harm self or others. Onset of symptoms was August 01, 2021. 02:40 Method Of Arrival: Ambulatory bb 02:40 Acuity: EUGENE 3 bb Triage Assessment: 03:41 General: Appears in no apparent distress. ill, obese, Behavior is calm, cooperative, tw5 appropriate for age. 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 - Social history:: Smoking status: unknown. - Family history:: not pertinent. Screenin:41 Abuse screen: Denies threats or abuse. Denies injuries from another. Nutritional tw5 screening: No deficits noted. Tuberculosis screening: No symptoms or risk factors identified. Fall Risk No fall in past 12 months (0 pts). Secondary diagnosis (15 points) IV access (20 points). Ambulatory Aid- Crutches/Cane/Walker (15 pts). Gait- Normal/Bed Rest/Wheelchair (0 pts) Mental Status- Oriented to own ability (0 pts). Assessment: 02:42 Pain: Complains of pain in " All over" Patient states that her entire body aches Pain tw5 currently is 9 out of 10 on a pain scale. 03:39 General: Appears in no apparent distress. Neuro: Level of Consciousness is awake, tw5 alert, obeys commands, Oriented to person, place, time, situation. Cardiovascular: Rhythm is sinus tachycardia. Cardiovascular: diaphoretic . Respiratory: Airway is patent Trachea midline Respiratory effort is even, unlabored. GI: Abdomen is obese. : Urine is cloudy. Derm: Skin is intact, Skin is diaphoretic, Skin is normal, Abscess located on left lateral posterior chest and right lateral posterior chest is half dollar sized, is red, is raised, was lanced by patient prior to arrival. Musculoskeletal:. Vital Signs: 02:40 BP 173 / 90; Pulse 106; Resp 18 S; Temp 99.5(O); Pulse Ox 98% on R/A; Weight 117.93 kg bb (R); Height 5 ft. 6 in. (167.64 cm) (R); Pain 9/10; 03:02 BP 164 / 78; Pulse 101; Resp 23; Pulse Ox 98% on R/A; Pain 9/10; tw5 05:08 Pain 0/10; tw5 05:10 BP 110 / 72; Pulse 85; Resp 24; Pulse Ox 98% on R/A; tw5 02:40 Body Mass Index 41.96 (117.93 kg, 167.64 cm) bb ED Course: 02:13 Patient arrived in ED. es 02:30 Chase Michelle MD is Attending Physician. joão 02:31 Huang Apodaca, LORNA is Primary Nurse. as6 02:44 Triage completed. bb 02:44 Arm band placed on Patient placed in an exam room, on a stretcher, on pulse oximetry. bb Family accompanied patient. 02:49 Pablito Carrizales MD is Hospitalizing Provider. joão 02:58 Assisted to bathroom. 02:58 EKG done, by ED staff, reviewed by Chase Michelle MD. 02:58 Urine collected: clean catch specimen, cloudy, Amount Voided: 10mL. 02:59 nuclear monitoring technician on. Pulse ox on. NIBP on. tw 03:02 Patient has correct armband on for positive identification. Placed in gown. Bed in low tw5 position. Call light in reach. Side rails up X 1. Door closed. Noise minimized. Moved to private room. Verbal reassurance given. 03:11 Initial lab(s) drawn, by me, sent to lab. First set of blood cultures drawn. tw 03:11 Inserted saline lock: 20 gauge in right antecubital area, using aseptic technique. tw5 Blood collected. 03:13 Initial lab(s) drawn, by me, sent to lab. Second set of blood cultures drawn. tw 03:14 Inserted saline lock: 20 gauge in right wrist, using aseptic technique. Blood collected. 03:14 COVID swab sent to lab. 03:26 SARS-COV-2 RT PCR (Document "Date of Onset" if Symptomatic) Sent. tw 03:26 Blood Culture Adult (2) Sent. 03:26 Basic Metabolic Panel Sent. 03:26 CBC with Diff Sent. 03:28 Magnesium Sent. 03:28 NT PRO-BNP Sent. tw 03:30 Basic Metabolic Panel Sent. tw 03:30 Blood Culture Adult (2) Sent. 03:30 CBC with Diff Sent. 03:30 CPK Sent. 03:30 Ckmb Sent. 03:30 LFT's Sent. 03:30 Lactate Sent. tw 03:30 Lipase Sent. tw 03:30 Procalcitonin Sent. 03:30 Protime (+inr) Sent. 03:30 Ptt, Activated Sent. 03:30 Troponin (emerg Dept Use Only) Sent. 03:30 Urine Microscopic Only Sent. tw 05:08 No provider procedures requiring assistance completed. Patient admitted, IV remains in tw5 place. Administered Medications: 02:45 CANCELLED (Physician Discretion): NS 0.9% (30 ml/kg) 30 ml/kg IV at bolus once; Sepsis tw5 Protocol 03:24 Drug: Zofran (Ondansetron) 4 mg Route: IVP; Site: right wrist; 05:02 Follow up: Response: No adverse reaction 03:25 Drug: morphine 2 mg Route: IVP; Site: right wrist; 05:08 Follow up: Pain 0/10 Adult; Response: No adverse reaction; Pain is decreased; RASS: Alert and Calm (0) 03:26 Drug: NS 0.9% 1000 ml Route: IV; Rate: 1 bolus; Site: right antecubital; 05:09 Follow up: IV Status: Infusion continued upon admission 03:26 Drug: NS 0.9% 1000 ml Route: IV; Rate: 125 ml/hr; Site: right wrist; 05:09 Follow up: IV Status: Infusion continued upon admission 03:32 Drug: Zosyn (piperacillin-tazobactam) 3.375 grams Route: IVPB; Infused Over: 60 mins; Site: right antecubital; 05:09 Follow up: Response: No adverse reaction; IV Status: Completed infusion 03:33 Drug: vancoMYCIN 2 grams Route: IVPB; Rate: calculated rate; Site: right wrist; 05:08 Follow up: IV Status: Infusion continued upon admission 03:41 Drug: Tylenol 1000 mg Route: PO; 05:09 Follow up: Response: No adverse reaction 05:01 Drug: Insulin Regular Human 8 units {Co-Signature: mr2 ([place] RN).} Route: IVP; Site: right antecubital; 05:09 Follow up: Response: No adverse reaction 05:02 Drug: Magnesium Sulfate 1 grams Route: IVPB; Infused Over: 1 hrs; Site: right tw5 antecubital; 05:09 Follow up: IV Status: Infusion continued upon admission Outcome: 02:51 Decision to Hospitalize by Provider. joão 04:28 Admitted to Med/surg room 409, Report called to Spoke to charge nurse. He stated as6 receiving nurse needed a moment prior to taking report 04:28 Condition: stable 04:28 Instructed on the need for admit. 04:41 Admitted to Med/surg Report called to Attempted to call report. No answer at 1445 as6 05:15 Patient left the ED. Signatures: Chase Michelle MD MD cha Salyer, Edna es Ballard, Brenda, RN RN Zamzam Benitez tw5 Huang Apodaca RN RN as6 [place] RN mr2 Corrections: (The following items were deleted from the chart) 02:59 02:58 EKG done, tw5 tw5
--- NOTE | 2021-08-03 02:51 | EDPHYS ---
Physician Documentation [facility] Name: Antoinette Sarmiento Age: 46 yrs Sex: Female : 1975 Arrival Date: 08/03/2021 Time: 02:13 Bed 7 Private MD: JELANI Physician Chase Michelle HPI: 08/03 02:44 This 46 yrs old Female presents to ER via Ambulatory with complaints of Pain joão All Over. 02:44 The patient presents with an abscess of the back, The patient presents with cellulitis joão of the back, the patient presents with a swollen area of the back. Description: The affected area is moderate sized, confluent, draining, erythematous, fluctuant, hot, swollen. Onset: The symptoms/episode began/occurred 1 week(s) ago. Possible cause(s): unknown. Associated signs and symptoms: Pertinent positives: drainage, erythema, fever, shortness of breath, swelling. Modifying factors: the symptoms are alleviated by remaining still, the symptoms are aggravated by pressure, squeezing the lesion and expressing the contents, touching. 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 - Social history:: Smoking status: unknown. - Family history:: not pertinent. ROS: 02:44 Constitutional: Negative for fever, chills, and weight loss, Eyes: Negative for injury, joão pain, redness, and discharge, ENT: Negative for injury, pain, and discharge, Neck: Negative for injury, pain, and swelling, Cardiovascular: Negative for chest pain, palpitations, and edema, Respiratory: Negative for shortness of breath, cough, wheezing, and pleuritic chest pain, Abdomen/GI: Negative for abdominal pain, nausea, vomiting, diarrhea, and constipation, Back: Negative for injury and pain, : Negative for injury, bleeding, discharge, and swelling, MS/Extremity: Negative for injury and deformity, Neuro: Negative for headache, weakness, numbness, tingling, and seizure, Psych: Negative for depression, anxiety, suicide ideation, homicidal ideation, and hallucinations, Allergy/Immunology: Negative for hives, rash, and allergies, Endocrine: Negative for neck swelling, polydipsia, polyuria, polyphagia, and marked weight changes, Hematologic/Lymphatic: Negative for swollen nodes, abnormal bleeding, and unusual bruising. 02:44 Skin: Positive for erythema, swelling, of the back. Exam: 02:44 Head/Face: Normocephalic, atraumatic. Eyes: Pupils equal round and reactive to light, joão extra-ocular motions intact. Lids and lashes normal. Conjunctiva and sclera are non-icteric and not injected. Cornea within normal limits. Periorbital areas with no swelling, redness, or edema. ENT: Nares patent. No nasal discharge, no septal abnormalities noted. Tympanic membranes are normal and external auditory canals are clear. Oropharynx with no redness, swelling, or masses, exudates, or evidence of obstruction, uvula midline. Mucous membranes moist. Neck: Trachea midline, no thyromegaly or masses palpated, and no cervical lymphadenopathy. Supple, full range of motion without nuchal rigidity, or vertebral point tenderness. No Meningismus. Cardiovascular: Regular rate and rhythm with a normal S1 and S2. No gallops, murmurs, or rubs. Normal PMI, no JVD. No pulse deficits. Respiratory: Lungs have equal breath sounds bilaterally, clear to auscultation and percussion. No rales, rhonchi or wheezes noted. No increased work of breathing, no retractions or nasal flaring. Abdomen/GI: Soft, non-tender, with normal bowel sounds. No distension or tympany. No guarding or rebound. No evidence of tenderness throughout. Back: No spinal tenderness. No costovertebral tenderness. Full range of motion. MS/ Extremity: Pulses equal, no cyanosis. Neurovascular intact. Full, normal range of motion. Neuro: Awake and alert, GCS 15, oriented to person, place, time, and situation. Cranial nerves II-XII grossly intact. Motor strength 5/5 in all extremities. Sensory grossly intact. Cerebellar exam normal. Normal gait. Psych: Awake, alert, with orientation to person, place and time. Behavior, mood, and affect are within normal limits. 02:44 Chest/axilla: Inspection: abscess, that is moderate-sized, cellulitis, that is mild, Palpation: tenderness, that is moderate, of the left lateral posterior chest and right lateral posterior chest. 03:54 ECG was reviewed by the Attending Physician. [facility] Vital Signs: 02:40 BP 173 / 90; Pulse 106; Resp 18 S; Temp 99.5(O); Pulse Ox 98% on R/A; Weight 117.93 kg bb (R); Height 5 ft. 6 in. (167.64 cm) (R); Pain 9/10; 03:02 BP 164 / 78; Pulse 101; Resp 23; Pulse Ox 98% on R/A; Pain 9/10; tw5 05:08 Pain 0/10; tw5 05:10 BP 110 / 72; Pulse 85; Resp 24; Pulse Ox 98% on R/A; tw5 02:40 Body Mass Index 41.96 (117.93 kg, 167.64 cm) bb MDM: 02:32 Patient medically screened. [facility] 02:48 Differential diagnosis: abscess, cellulitis, bacterial infection. Differential [facility] Diagnosis sepsis. Data reviewed: vital signs, nurses notes, lab test result(s), EKG, radiologic studies, plain films. 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 Test interpretation: by ED physician or midlevel provider: ECG, plain radiologic studies. Counseling: I had a detailed discussion with the patient and/or guardian regarding: the historical points, exam findings, and any diagnostic results supporting the discharge/admit diagnosis, lab results, radiology results, the need for further work-up and treatment in the hospital. 08/03 02:42 Order name: Basic Metabolic Panel; Complete Time: 04:26 08/03 02:42 Order name: Blood Culture Adult (2) 08/03 02:42 Order name: CBC with Diff 08/03 02:42 Order name: CPK; Complete Time: 04:26 08/03 02:42 Order name: Ckmb; Complete Time: 04:26 08/03 02:42 Order name: LFT's; Complete Time: 04:26 08/03 02:42 Order name: Lactate; Complete Time: 04:26 08/03 02:42 Order name: Lipase; Complete Time: 04:26 08/03 02:42 Order name: Procalcitonin; Complete Time: 04:[address] [facility] 08/03 02:42 Order name: Protime (+inr); Complete Time: 04:[address] [facility] 08/03 02:42 Order name: Ptt, Activated; Complete Time: 04:[address] [facility] 08/03 02:42 Order name: Troponin (emerg Dept Use Only); Complete Time: 04:[address] [facility] 08/03 02:42 Order name: Urine Microscopic Only [facility] 08/03 02:42 Order name: Basic Metabolic Panel [facility] 08/03 02:42 Order name: CBC with Diff [facility] 08/03 02:42 Order name: LFT's [facility] 08/03 02:42 Order name: Magnesium; Complete Time: 04:26 [facility] 08/03 02:42 Order name: NT PRO-BNP; Complete Time: 04:26 [facility] 08/03 02:42 Order name: XRAY Chest (1 view) [facility] 08/03 02:42 Order name: Blood Culture Adult (2) [facility] 08/03 02:42 Order name: Amylase; Complete Time: 04:26 [facility] 08/03 02:43 Order name: SARS-COV-2 RT PCR (Document "Date of Onset" if Symptomatic); Complete Time: [facility] 04:08/03 05:03 Order name: Manual Differential [facility] 08/03 02:42 Order name: EKG - Nurse/Tech; Complete Time: 03:[address] [facility] 08/03 02:42 Order name: IV Saline Lock - Large Bore; Complete Time: 03:[address] [facility] 08/03 02:42 Order name: Labs collected and sent; Complete Time: 03:[address] [facility] 08/03 02:42 Order name: O2 Per Protocol; Complete Time: 03:[address] [facility] 08/03 02:42 Order name: O2 Sat Monitoring; Complete Time: 03:[address] [facility] 08/03 02:42 Order name: Urine Dipstick-Ancillary (obtain specimen); Complete Time: 03:[address] [facility] 08/03 02:42 Order name: EKG; Complete Time: 02:43 [facility] 08/03 02:42 Order name: Cardiac monitoring; Complete Time: 03:26 [facility] 08/03 02:42 Order name: EKG - Nurse/Tech; Complete Time: 02:58 [facility] 08/03 02:42 Order name: IV Saline Lock; Complete Time: 03:26 [facility] 08/03 02:42 Order name: Labs collected and sent; Complete Time: : [facility] 08/03 02:42 Order name: O2 Per Protocol; Complete Time: [facility] 08/03 02:42 Order name: O2 Sat Monitoring; Complete Time: [facility] EC:54 Rate is 105 beats/min. Rhythm is regular. QRS Handley is Normal. WI interval is normal. joão QRS interval is normal. QT interval is normal. No Q waves. T waves are Normal. No ST changes noted. Clinical impression: Sinus tachycardia and No evidence of ischemia. Interpreted by me. Reviewed by me. Administered Medications: 02:45 CANCELLED (Physician Discretion): NS 0.9% (30 ml/kg) 30 ml/kg IV at bolus once; Sepsis tw5 Protocol 03:24 Drug: Zofran (Ondansetron) 4 mg Route: IVP; Site: right wrist; tw5 05:02 Follow up: Response: No adverse reaction 03:25 Drug: morphine 2 mg Route: IVP; Site: right wrist; tw5 05:08 Follow up: Pain 0/10 Adult; Response: No adverse reaction; Pain is decreased; RASS: tw5 Alert and Calm (0) 03:26 Drug: NS 0.9% 1000 ml Route: IV; Rate: 1 bolus; Site: right antecubital; tw 05:09 Follow up: IV Status: Infusion continued upon admission tw 03:26 Drug: NS 0.9% 1000 ml Route: IV; Rate: 125 ml/hr; Site: right wrist; tw5 05:09 Follow up: IV Status: Infusion continued upon admission tw 03:32 Drug: Zosyn (piperacillin-tazobactam) 3.375 grams Route: IVPB; Infused Over: 60 mins; tw5 Site: right antecubital; 05:09 Follow up: Response: No adverse reaction; IV Status: Completed infusion 03:33 Drug: vancoMYCIN 2 grams Route: IVPB; Rate: calculated rate; Site: right wrist; tw5 05:08 Follow up: IV Status: Infusion continued upon admission tw 03:41 Drug: Tylenol 1000 mg Route: PO; tw5 05:09 Follow up: Response: No adverse reaction tw5 05:01 Drug: Insulin Regular Human 8 units {Co-Signature: mr2 ([place] RN).} Route: IVP; tw5 Site: right antecubital; 05:09 Follow up: Response: No adverse reaction tw5 05:02 Drug: Magnesium Sulfate 1 grams Route: IVPB; Infused Over: 1 hrs; Site: right tw5 antecubital; 05:09 Follow up: IV Status: Infusion continued upon admission tw5 Disposition Summary: 08/03/21 02:51 Hospitalization Ordered Hospitalization Status: Observation joão Provider: Pablito Carrizales cha Location: Telemetry/MedSurg (observation) joão Condition: Stable joão Problem: new joão Symptoms: have improved joão Bed/Room Type: Standard joão Room Assignment: 409(08/03/21 04:18) Diagnosis - Cutaneous abscess of left axilla joão - Cutaneous abscess of right axilla joão - Type 2 diabetes mellitus with hyperglycemia joão - Fever, unspecified joão - Hypomagnesemia joão - Elevated white blood cell count joão Forms: - Medication Reconciliation Form joão - SBAR form joão Signatures: Dispatcher [employer] EDChase Ricketts MD MD cha Ballard, Brenda, RN RN Ana Lyle RN RN Zamzam Carbajal tw5 [place] RN mr2 Corrections: (The following items were deleted from the chart) 02:43 02:43 Basic Metabolic Panel ordered. EDND EDMS 02:43 02:43 Basic Metabolic Panel ordered. EDND EDMS 02:43 02:43 CBC with Automated Diff ordered. EDND EDMS 02:43 02:43 CBC with Automated Diff ordered. EDND EDMS 02:43 02:43 Liver (Hepatic) Function ordered. EDND EDMS 02:43 02:43 Liver (Hepatic) Function ordered. EDND EDMS 02:43 02:43 PROTIME (+INR)+COAG.LAB.BRZ ordered. EDND EDMS 02:44 02:43 TROPONIN (EMERG DEPT USE ONLY)+C.LAB.BRZ ordered. EDND EDMS 02:44 02:43 LACTATE+C.LAB.BRZ ordered. EDND EDMS 02:45 02:42 NS 0.9% (30 ml/kg) 30 ml/kg IV at bolus once; Sepsis Protocol ordered. 03:29 02:42 Accucheck ordered. 03:29 02:42 Cardiac monitoring ordered. tw5 tw5 04:18 02:51 joão
[2021-08-03] MEDS ORDERED: ACETAMINOPHEN 500 MG TAB ONE (03:37)
[2021-08-03 03:48] LABS: Absolute Lymphocytes (CBC) 1.6 K/uL (0.7-4.9); Basophils % 0.3 % (0-1.3); Hematocrit 38.8 % (36.0-45.0); Lymphocytes % 7.9 % (15.3-44.8); MPV 9.4 fL (7.6-11.3); Protime INR 1.12; RBC Red Blood Cell Count 4.95 M/uL (3.86-4.86)
[2021-08-03 04:00] LABS: ALT/SGPT 39 U/L (12-78); AST/SGOT 12 U/L (15-37); Albumin 2.8 g/dL (3.4-5.0); Alkaline Phosphatase 141 U/L (45-117); Amylase 20 U/L (25-115); BUN Blood Urea Nitrogen 7 mg/dL (7-18); Bicarbonate 20 mmol/L (21-32); Bilirubin Direct 0.2 mg/dL (0-0.2); Bilirubin Total 0.5 mg/dL (0.2-1.0); CKMB Creatine Kinase MB 1.5 ng/mL (1.0-3.6); Creatine Phosphokinase 68 U/L (26-192); Glucose Level 387 mg/dL (74-106); Lipase 94 U/L (73-393); Magnesium 1.7 mg/dL (1.8-2.4); NT PRO-BNP 90 pg/mL (<125); Potassium 3.7 mmol/L (3.5-5.1); Protein, Total 7.3 g/dL (6.4-8.2); Sodium Level 139 mmol/L (136-145); Troponin (Emerg Dept Use Only) < 0.02 ng/mL (0.0-0.045)
--- NOTE | 2021-08-03 04:24 | P.HP ---
Certification for Inpatient Patient admitted to: Inpatient With expected LOS: >2 Midnights Patient will require the following post-hospital care: None Practitioner: I am a practitioner with admitting privileges, knowledge of patient current condition, hospital course, and medical plan of care. Services: Services provided to patient in accordance with Admission requirements found in Title 42 Section 412.3 of the Code of Federal Regulations <Shay Burciaga - Last Filed: 08/03/21 04:18> Patient History Date of Service: 08/03/21 Primary Care Provider: [facility]tran Reason for admission: abscess History of Present Illness: Ms. Sarmiento is a 46 yo F with T2DM and HTN who presents with fever. Beginning yesterday she has had chills and malaise. She has two large, erythematous, warm abscesses on the left and right lateral posterior chest wall. Her attempted to drain them both yesterday. She has had several abscesses like this in the past that normally heal or improve on their own. Denies nausea and vomiting. WBC 20.1. - Past Medical/Surgical History Diabetic: Yes -: DM -: HTN Past Surgical History: Patient denies surgical history - Family History Mother -: Diabetes - Social History Smoking Status: Never smoker Alcohol use: No CD- Drugs: No Caffeine use: No Place of Residence: Home <Shay Burciaga [place] - Last Filed: 08/03/21 04:18> Date of Service: 08/03/21 <Pablito Carrizales - Last Filed: 08/04/21 11:16> Allergies No Known Allergies Allergy (Unverified 02/03/16 21:15) Review of Systems General: Fever, Chills Eyes: Unremarkable ENT: Unremarkable Respiratory: Unremarkable Cardiovascular: Unremarkable Gastrointestinal: Unremarkable Genitourinary: Unremarkable Musculoskeletal: Unremarkable Integumentary: As per HPI Neurological: Unremarkable Lymphatics: Unremarkable <Shay Burciaga [place] - Last Filed: 08/03/21 04:18> Physical Examination - Physical Exam General: Alert, In no apparent distress, Obese HEENT: Atraumatic, PERRLA, Mucous membr. moist/pink, EOMI, Sclerae nonicteric Neck: Supple, 2+ carotid pulse no bruit, No LAD, Without JVD or thyroid abnormality Respiratory: Clear to auscultation bilaterally, Normal air movement Cardiovascular: Regular rate/rhythm, Normal S1 S2 Gastrointestinal: Normal bowel sounds, No tenderness Musculoskeletal: No tenderness Integumentary: Tenderness/swelling, Erythema, Warmth, Other (bilateral abscess on lateral posterior chest wall, cellulitis ) Neurological: Normal speech, Normal strength at 5/5 x4 extr, Normal tone, Normal affect Lymphatics: No axilla or inguinal lymphadenopathy - Studies Laboratory Data (last 24 hrs) 08/03/21 03:11: PT 12.9 H, INR 1.12, APTT 37.3 H 08/03/21 03:11: WBC 20.10 H*, Hgb 12.7, Hct 38.8, Plt Count 276 08/03/21 03:11: Sodium 139, Potassium 3.7, BUN 7, Creatinine 0.60, Glucose 387 H, Magnesium 1.7 L, Total Bilirubin 0.5, AST 12 L, ALT 39, Alkaline Phosphatase 141 H, Amylase 20 L, Lipase 94 <Shay Burciaga - Last Filed: 08/03/21 04:18> Assessment and Plan - Problems (Diagnosis) (1) Abscess Current Visit: Yes Status: Acute (2) Leukocytosis Current Visit: Yes Status: Acute Qualifiers: Leukocytosis type: unspecified Qualified Code(s): D72.829 - Elevated white blood cell count, unspecified (3) T2DM (type 2 diabetes mellitus) Current Visit: Yes Status: Acute Qualifiers: Diabetes mellitus senior living insulin use: without senior living use Diabetes mellitus complication status: with skin complications Diabetes mellitus co mplication detail: with other skin complication Qualified Code(s): E11.628 - Type 2 diabetes mellitus with other skin complications (4) HTN (hypertension) Current Visit: Yes Status: Chronic Qualifiers: Hypertension type: primary hypertension Qualified Code(s): I10 - Essential (primary) hypertension - Plan surgery consulted continue IV vancomycin and zosyn, continue IVF hydration continue tylenol PRN for fever pain management as needed blood cultures pending sliding scale insulin and accuchecks, A1c pending hydralazine PRN for BP spikes DVT ppx Discharge Plan: Home Plan to discharge in: 48 Hours - Advance Directives Does patient have a Living Will: No Does patient have a Durable POA for Healthcare: No - Code Status/Comfort Care Code Status Assessed: Yes (full code ) Critical Care: No Time Spent Managing Pts Care (In Minutes): 70 <Shay Burciaga - Last Filed: 08/03/21 04:18> Date of Service: 08/03/21 Subjective: Agree with HPI as mentioned above Physical Examination: Vitals: Afebrile vital signs are stable Physical exam: Cardiovascular: Within normal limits. Lungs: Within normal limits Abdomen: Within normal limits Neuro: Awake, alert, oriented to person place and time Assessment/Plan: 1. Continue with plan of care as mentioned above <Pablito Carrizales - Last Filed: 08/04/21 11:16>
[2021-08-03] MEDS ORDERED: ONDANSETRON 4 MG/2 ML VIAL IV PRN (05:01)
[2021-08-03] MEDS ORDERED: ACETAMINOPHEN 500 MG TAB PO PRN (05:01)
[2021-08-03] MEDS ORDERED: TRAMADOL HCL 50 MG TAB PO PRN (05:01)
[2021-08-03] MEDS: NA CHLORIDE 0.9% 1,000 ML IV SCH ×2 (05:01→15:30)
[2021-08-03] MEDS ORDERED: HYDRALAZINE HCL 20 MG/ML VIAL IV PRN (05:01)
[2021-08-03 05:03] VITALS: BMI 40.3
[2021-08-03 05:03] LABS: Blood Morphology Comment NOT SEEN (NOT SEEN); Platelet Estimate ADEQ
[2021-08-03] MEDS ORDERED: INSULIN -REGULAR HUMAN 50 UNIT/0.5 ML ML ONE (05:03)
[2021-08-03] MEDS ORDERED: MAGNESIUM SULFATE 1 gm IVPB 1 GM/100 ML BAG IV ONE (05:04)
[2021-08-03 05:18] LABS: Urine Bacteria <20 /HPF (<20); Urine RBC >50 /HPF (NONE SEEN)
[2021-08-03] MEDS: INSULIN -REGULAR HUMAN 50 UNIT/0.5 ML ML SQ SCH ×4 (07:30→21:55)
--- NOTE | 2021-08-03 07:37 | RAD REPORT ---
EXAM DESCRIPTION: RAD - Chest Single View - 08/03/2021 3:56 am CLINICAL HISTORY: COUGH COMPARISON: No comparisons FINDINGS: Lines: None. Lungs: No evidence of edema or pneumonia. Pleural: No significant pleural effusions or pneumothorax. Cardiac: The heart size is within normal limits. Bones: No acute fractures. Other: IMPRESSION: No acute cardiopulmonary disease.
--- NOTE | 2021-08-03 07:48 | EKG ---
Test Date: 2021-08-03 Test Time: 02:56:48 Digital Business Analyst: REG MEASUREMENT RESULTS: Intervals: Rate: 105 IA: 150 QRSD: 86 QT: 342 QTc: 452 [place]: P: 48 IA: 150 QRS: 51 T: 18 INTERPRETIVE STATEMENTS: Sinus tachycardia Otherwise normal ECG No previous ECG available for comparison Electronically Signed On 08-03-21 07:47:58 FIELD INSTRUCTOR by Lalito Gross
[2021-08-03] MEDS: ENOXAPARIN 40 MG/0.4 ML SQ SCH (08:46)
[2021-08-03 10:06] LABS: Specific Gravity >= 1.030 (1.005-1.030)
[2021-08-03] MEDS ORDERED: NA CHLORIDE 0.9% 100 ML ONE (10:19)
[2021-08-03] MEDS ORDERED: VANCOMYCIN 1.75 GM in NA CHLORIDE 0.9% 500 ML IVPB SCH (11:00)
[2021-08-03] MEDS: PIPER TAZO 3.375 GM in NA CHLORIDE 0.9% 100 ML IV SCH ×2 (11:09→16:59)
[2021-08-03] MEDS ORDERED: NA CHLORIDE 0.9% 1,000 ML ONE (11:57)
[2021-08-03] MEDS ORDERED: FENTANYL CITR 100 MCG/2 ML ONE ×2 (12:11→13:05)
[2021-08-03] MEDS ORDERED: LIDOCAINE 1% MPF 5 ML VIAL ONE (12:11)
[2021-08-03] MEDS ORDERED: propofoL 200 MG/20 ML VIAL IV ONE ×3 (12:11→13:02)
[2021-08-03] MEDS ORDERED: MIDAZOLAM HCL 2 MG/2 ML INJ ONE (12:11)
[2021-08-03] MEDS: BUPIVACAINE 0.25% PF 10 ML VIAL ONE ×2 (12:45→12:49)
[2021-08-03] MEDS ORDERED: KETOROLAC 30 MG/ML INJ ONE (12:52)
[2021-08-03] MEDS ORDERED: SODIUM HYPOCHLORITE 0.5% 473 ML ONE (12:55)
[2021-08-03] MEDS ORDERED: BUPIVACAINE 0.25% PF 10 ML VIAL ONE (12:55)
--- NOTE | 2021-08-03 13:19 | P.OP ---
Preoperative diagnosis: Bilateral Chest / Breast Abscesses Postoperative diagnosis: Bilateral Chest / Breast Abscesses Primary procedure: Incision and Drainage / Debridement of Bilateral Chest / Breast Abscesses Anesthesia: MAC + Local Estimated blood loss: <30cc Specimen: cultures, debridement tissues Findings: ~ 7cm abscess of RIGHT chest / breast / ~4cm abscess of LEFT chest / breast Complications: None Transferred to: Recovery Room Condition: Good
[2021-08-03 14:03] VITALS: O2SAT 96
--- NOTE | 2021-08-03 14:15 | OP ---
Date of Procedure: 08/03/2021 Surgeon: Connor Dela Cruz MD, Preoperative Diagnosis: Bilateral chest/breast abscesses. Postoperative Diagnosis: Bilateral chest/breast abscesses. Procedure Performed: Incision and drainage and debridement of bilateral chest and breast abscesses. Anesthesia: MAC plus local with 0.25% Marcaine. Estimated Blood Loss: Less than 30 cc. Specimen: Cultures for both aerobic and anaerobic speciation as well as debridement. Tissue Findings: Approximately 7 cm abscess of the right chest/breast, 4 cm abscess of the left ches t/breast. Complications: None. Disposition: The patient was transferred to recovery room in good condition. Procedure: After informed consent was obtained, the patient was brought to the operating room, prepp ed and draped in the usual sterile fashion. After adequate anesthesia was achieved, anesthetized the area of the right chest wall posterior to the breast area near the latissimus down to subcutaneous t issues. I made an elliptical incision around obvious drainage point where abscess material was encou ntered. This was sent for both aerobic and anaerobic speciation. I then performed debridement of a large multiloculated approximately 7 cm abscess cavity, which was multiloculated into the chest area extending into the breast tissue. This was opened in its entirety, debrided completely and hemostasi s was achieved with electrocautery. The area was then copiously irrigated and packed with Dakin soak ed Kerlix and sterile dressing was placed over the top. I then turned my attention to the left chest wall at this point, after completing the right chest today. The left chest similarly was anesthetiz ed, sharply incised and ellipse of skin was taken off down to subcutaneous tissues. I dissected down to expose an abscess cavity, at this point this was opened. This is also multiloculated abscess ruby roximately 4 cm in size. I debrided the area sharply and sent the tissue off for pathologic examinat ion. I then copiously irrigated the area, achieved hemostasis with electrocautery and then packed th e wound with same said Dakin soaked Kerlix and sterile dressing was placed over the top. The patient tolerated the procedure without incident or complication. Did require an additional anesthesia and MAC anesthesia was required rather than IV sedation. See anesthesia record for complete details rega rding this. All counts were correct at the end of the case. TK/RANJANL Voice ID: [id number] Report ID: [id number]
--- NOTE | 2021-08-03 14:21 | CON ---
Date of Consultation: 08/03/2021 Brief History Of Present Illness: The patient is a 46-year-old female with type 2 diabetes, hypertension, presents with fever and chills, malaise, and 2 large erythematous warm abscesses on th e left and right lateral posterior chest wall. Her tried squeezing them and got some materia l out, but it continued to get worse and larger and more tender. As such, she came to the emergency room with the above-stated complaints. Past Medical History: Significant for diabetes, hypertension. Past Surgical History: She denied. Allergies: NO KNOWN DRUG ALLERGIES. Family History: Significant for diabetes in her mother. Social History: She denies smoking, alcohol, or recreational drug use. Review of Systems: Ten-point review of systems other than HPI, denies. Physical Examination: Vital Signs: At the time of my examination, her BMI is 40. She is 5 feet 6 inches, 250 pounds. Blo od pressure was 149/80, pulse 83, respiratory rate 18, temperature 97.9, O2 saturation is 98% on room air. General: She is awake, alert, oriented. Psychiatric: Appropriate and conversive. HEENT: Normocephalic. Sclerae icteric. Mucous membranes are moist. Oropharynx is clear. Neck: Supple without JVD. Chest: Normal expansion and excursion. Cardiovascular: Regular rhythm. Pulmonary: Clear to auscultation bilaterally. Skin: Focused examination of the skin shows 2 large erythematous abscesses approximately 4 cm round oblong in the posterolateral chest wall just anterior to the trapezius on the lateral chest wall bila terally. The remainder examination is unremarkable. Laboratory Data: White blood cell count 20, hemoglobin 12.7, hematocrit 38.8, platelet count was 276 , neutrophils 83%. Her sodium 139, potassium 3.7, chloride 109, carbon dioxide 20, BUN 7, creatinine 0.6, glucose is 387. Procalcitonin 0.08. COVID was negative. She had chest x-ray performed on , officially read as no acute cardiopulmonary process. Assessment And Plan: This is a 46-year-old female with bilateral abscesses, noncompliant with diabet es treatment, who presents with abscesses of the lateral chest wall. 1.IV fluid hydration. 2.Antibiotic coverage. 3.I explained risks, benefits, and alternatives of incision and drainage of bilateral abscess with o ngoing wound care. The patient and her agreed to proceed as indicated. MALU/MEGHAN Voice ID: [id number] Report ID: [id number]
[2021-08-03] MEDS: VANCOMYCIN 1.75 GM in NA CHLORIDE 0.9% 500 ML IVPB SCH (15:00)
[2021-08-04] MEDS: PIPER TAZO 3.375 GM in NA CHLORIDE 0.9% 100 ML IV SCH ×2 (00:52→09:12)
[2021-08-04] MEDS: NA CHLORIDE 0.9% 1,000 ML IV SCH ×2 (02:48→09:11)
[2021-08-04] MEDS: VANCOMYCIN 1.75 GM in NA CHLORIDE 0.9% 500 ML IVPB SCH (03:29)
[2021-08-04 04:13] LABS: Absolute Lymphocytes (CBC) 3.1 K/uL (0.7-4.9); Basophils % 0.1 % (0-1.3); Hematocrit 34.6 % (36.0-45.0); Lymphocytes % 18.6 % (15.3-44.8); MPV 9.1 fL (7.6-11.3); RBC Red Blood Cell Count 4.44 M/uL (3.86-4.86)
[2021-08-04 04:36] LABS: ALT/SGPT 27 U/L (12-78); AST/SGOT 9 U/L (15-37); Albumin 2.3 g/dL (3.4-5.0); Alkaline Phosphatase 110 U/L (45-117); BUN Blood Urea Nitrogen 9 mg/dL (7-18); Bicarbonate 22 mmol/L (21-32); Bilirubin Total 0.6 mg/dL (0.2-1.0); Glucose Level 211 mg/dL (74-106); HDL Cholesterol 28 mg/dL (40-60); LDL Cholesterol, Calculated 61 (<130); Magnesium 1.8 mg/dL (1.8-2.4); Phosphorus 1.4 mg/dL (2.5-4.9); Potassium 3.6 mmol/L (3.5-5.1); Protein, Total 6.3 g/dL (6.4-8.2); Sodium Level 140 mmol/L (136-145)
[2021-08-04] MEDS ORDERED: MAGNESIUM SULFATE 1 gm IVPB 1 GM/100 ML BAG IV ONE (07:12)
[2021-08-04] MEDS ORDERED: POTASSIUM CL SA 10 MEQ TAB PO ONE (07:14)
[2021-08-04 08:42] VITALS: BP 161/92; TEMP 98.1
[2021-08-04] MEDS: ENOXAPARIN 40 MG/0.4 ML SQ SCH (09:12)
[2021-08-04] MEDS: INSULIN -REGULAR HUMAN 50 UNIT/0.5 ML ML SQ SCH (09:12)
[2021-08-04] MEDS: POTASS/SODIUM PHOSPHATE 1 PKT POWD.PACK PO SCH ×2 (09:13→10:52)
--- NOTE | 2021-08-04 11:18 | P.DS ---
Discharge Date: 08/04/21 Primary Care Provider: [facility]tran Disposition: ROUTINE DISCHARGE Discharge Condition: GOOD Reason for Admission: abscess Brief History of Present Illness: Ms. Sarmiento is a 46 yo F with T2DM and HTN who presents with fever. Beginning yesterday she has had chills and malaise. She has two large, erythematous, warm abscesses on the left and right lateral posterior chest wall. Her attempted to drain them both yesterday. She has had several abscesses like this in the past that normally heal or improve on their own. Denies nausea and vomiting. WBC 20.1. Hospital Course: Patient did well during hospital stay. She clinically is doing well and stable for discharge home with outpatient follow-up. Vital Signs/Physical Exam: Temp Pulse Resp BP Pulse Ox 98.1 F 93 H 24 H 161/92 H 96 08/04/21 08:00 08/04/21 08:00 08/04/21 08:00 08/04/21 08:00 08/04/21 08:00 General: Alert, In no apparent distress, Oriented x3 Laboratory Data at Discharge: WBC 16.40 K/uL (4.3-10.9) H D 08/04/21 03:16 Hgb 11.4 g/dL (12.0-15.0) L 08/04/21 03:16 Hct 34.6 % (36.0-45.0) L 08/04/21 03:16 Plt Count 272 K/uL (152-406) 08/04/21 03:16 PT 12.9 SECONDS (9.5-12.5) H 08/03/21 03:11 INR 1.12 08/03/21 03:11 APTT 37.3 SECONDS (24.3-36.9) H 08/03/21 03:11 Sodium 140 mmol/L (136-145) 08/04/21 03:16 Potassium 3.6 mmol/L (3.5-5.1) 08/04/21 03:16 BUN 9 mg/dL (7-18) 08/04/21 03:16 Creatinine 0.47 mg/dL (0.55-1.3) L 08/04/21 03:16 Glucose 211 mg/dL (74-106) H 08/04/21 03:16 Phosphorus 1.4 mg/dL (2.5-4.9) L 08/04/21 03:16 Magnesium 1.8 mg/dL (1.8-2.4) 08/04/21 03:16 Total Bilirubin 0.6 mg/dL (0.2-1.0) 08/04/21 03:16 AST 9 U/L (15-37) L 08/04/21 03:16 ALT 27 U/L (12-78) 08/04/21 03:16 Alkaline Phosphatase 110 U/L (45-117) 08/04/21 03:16 Triglycerides 86 mg/dL (<150) 08/04/21 03:16 Cholesterol 106 mg/dL (<200) 08/04/21 03:16 HDL Cholesterol 28 mg/dL (40-60) L 08/04/21 03:16 Cholesterol/HDL Ratio 3.79 08/04/21 03:16 Amylase 20 U/L (25-115) L 08/03/21 03:11 Lipase 94 U/L (73-393) 08/03/21 03:11 Home Medications: Amlodipine [Norvasc*] 1 tab PO BEDTIME 08/03/21 Metformin ER [Glucophage ER*] 1 tab PO BID 08/03/21 glipiZIDE [Glipizide] 1 tab PO BEDTIME 08/03/21 Hydrocodone 7.5/APAP 325 [[place] 7.5/325 mg] 1 tab PO Q6H PRN #30 tab 08/04/21 Minocycline HCl 100 mg PO BID #20 capsule 08/04/21 Smz./Tmp. [Bactrim Ds 800 MG/160 MG] 1 tab PO BID #20 tab 08/04/21 New Medications: Smz./Tmp. [Bactrim Ds 800 MG/160 MG] 1 tab PO BID #20 tab Minocycline HCl 100 mg PO BID #20 capsule Hydrocodone 7.5/APAP 325 [[place] 7.5/325 mg] 1 tab PO Q6H PRN #30 tab PRN Reason: Pain Physician Discharge Instructions: OK TO DC IV AND DC HOME FOLLOW-UP WITH PRIMARY CARE PROVIDER IN 1-2 WEEKS FOLLOW-UP WITH General surgery in 1 week RETURN TO THE ER IF symptoms worsen CALL or TEXT DR. JJ AT [phone] IF ANY QUESTIONS REGARDING HOSPITAL STAY. PLEASE CALL THE FLOOR AT [phone] IF ANY MEDICATION OR NURSING QUESTIONS. Diet: ADA Activity: Fall precautions Followup: Connor Dela Cruz MD [ACTIVE - CAN ADMIT] - 1 Week (Call to schedule an appointment ) Mayi Mendoza, RN [OUTSIDE PHYSICIAN] - 1-2 Weeks (call to schedule an appointment ) Time spent managing pt's care (in minutes): 55
== END 2021-08-04 12:00 | disposition home or self-care (01) | DRG 571 ==
LOC: ER 02:10 → ERHOLD 04:18 → 4TH 04:40
PROVIDERS: ADMIT Hospitalist; ATTEND Internal Medicine
PROC: 0JB60ZZ Excision of Chest Subcutaneous Tissue and Fascia, Open Approach (ICD-10-PCS; principal; 2021-08-03 09:45)
DX: N61.1 Abscess of the breast and nipple (principal); L02.213 Cutaneous abscess of chest wall; Z68.41 Body mass index [BMI] 40.0-44.9, adult; L03.312 Cellulitis of back [any part except buttock and flank]; E66.9 Obesity, unspecified; E11.628 Type 2 diabetes mellitus with other skin complications; E11.65 Type 2 diabetes mellitus with hyperglycemia; D72.829 Elevated white blood cell count, unspecified; E83.42 Hypomagnesemia; I10 Essential (primary) hypertension; Z79.899 Other long term (current) drug therapy; Z79.84 Long term (current) use of oral hypoglycemic drugs; Z91.19 Patient's noncompliance with other medical treatment and regimen; Z20.822 Contact with and (suspected) exposure to COVID-19
CPT/HCPCS: 36415; 71045; 80048; 80053; 80061; 80076; 81015; 81025; 82150; 82550; 82553; 82947; 83036; 83605; 83690; 83735; 83880; 84100; 84145; 84439; 84443; 84484; 85025; 85610; 85730; 87040; 87070; 87075; 87077; 87186; 87205; 88304; 93005; 99285; J0360; J1650; J2250; J2270; J2405; J2543; J2704; J3010; J3370; J3475; J7030; J7040; J7050; U0003

== ENCOUNTER 2021-12-30 07:03 | Day surgery (SDC) | payer OTHER, SELFPAY ==
[2021-12-28 11:20] LABS: Absolute Lymphocytes (CBC) 2.9 K/uL (0.7-4.9); Hematocrit 38.6 % (36.0-45.0); Lymphocytes % 26.9 % (15.3-44.8); MPV 9.1 fL (7.6-11.3); RBC Red Blood Cell Count 5.46 M/uL (3.86-4.86)
[2021-12-28 11:31] LABS: Potassium 4.1 mmol/L (3.5-5.1)
[2021-12-30] MEDS ORDERED: BUPIVACAINE 0.25% PF 10 ML VIAL ONE (07:26)
[2021-12-30] MEDS ORDERED: propofoL 200 MG/20 ML VIAL IV ONE (07:31)
[2021-12-30] MEDS ORDERED: MIDAZOLAM HCL 2 MG/2 ML INJ ONE (07:32)
[2021-12-30] MEDS ORDERED: FENTANYL CITR 100 MCG/2 ML ONE (07:32)
[2021-12-30] MEDS ORDERED: ROCURONIUM 50 MG/5 ML VIAL IV ONE ×2 (07:32→09:09)
[2021-12-30] MEDS ORDERED: LIDOCAINE 2% MPF 5 ML VIAL ONE (07:32)
[2021-12-30] MEDS ORDERED: ONDANSETRON 4 MG/2 ML VIAL ONE ×2 (07:33→07:35)
[2021-12-30] MEDS ORDERED: dexAMETHasone 4 MG/ML VIAL ONE (07:35)
[2021-12-30 07:50] LABS: Specific Gravity 1.015 (1.005-1.030)
[2021-12-30] MEDS ORDERED: NA CHLORIDE 0.9% 1,000 ML ONE (07:54)
[2021-12-30] MEDS ORDERED: CEFAZOLIN/SWI 2gm 2 GM/20 ML SYR ONE (07:54)
[2021-12-30] MEDS ORDERED: ACETAMINOPHEN 500 MG TAB ONE (08:14)
[2021-12-30] MEDS ORDERED: CELECOXIB 100 MG CAPSULE ONE (08:14)
[2021-12-30] MEDS ORDERED: METOCLOPRAMIDE 10 MG/2mL INJ ONE (09:02)
[2021-12-30] MEDS ORDERED: INSULIN -REGULAR HUMAN 50 UNIT/0.5 ML ML ONE ×3 (09:09→11:21)
[2021-12-30] MEDS ORDERED: MORPHINE 10 MG/ML VIAL ONE (09:44)
--- NOTE | 2021-12-30 10:12 | P.OP ---
Preoperative diagnosis: Incarcerated Ventral Abdominal Wall Hernia Postoperative diagnosis: Incarcerated Ventral Abdominal Wall Hernia Primary procedure: Laparoscopic Ventral Hernia Repair with Mesh Anesthesia: GETA + Local Estimated blood loss: <5cc Specimen: none Findings: ~4cm Ventral incarcerated - omentum hernia Complications: None Implants: Bard Ventralite ST Mesh with Echo 11.4cm Round, Sorbafix Tacker Transferred to: Recovery Room Condition: Good
[2021-12-30] MEDS ORDERED: NEOSTIGMINE 1 MG/ML -10 ML VIAL ONE (10:14)
[2021-12-30] MEDS ORDERED: GLYCOPYRROLATE 0.2 MG/ML SYR ONE (10:14)
[2021-12-30] MEDS: HYDROMORPHONE HCL 1 MG/ML INJ ONE ×2 (10:41→10:46)
[2021-12-30] MEDS ORDERED: LABETALOL HCL 100 MG/20 ML ONE (11:05)
[2021-12-30] MEDS ORDERED: HYDROMORPHONE HCL 1 MG/ML INJ ONE (11:10)
[2021-12-30 12:15] VITALS: BP 151/80; TEMP 97.7
[2021-12-30 12:33] VITALS: O2SAT 95
--- NOTE | 2021-12-30 22:06 | OP ---
Date of Procedure: 12/30/2021 Surgeon: Connor Dela Cruz MD, Preoperative Diagnosis: Incarcerated ventral abdominal wall hernia. Postoperative Diagnosis: Incarcerated ventral abdominal wall hernia. Procedures Performed: 1.Laparoscopic ventral hernia repair with mesh. 2.Laparoscopic adhesiolysis. Anesthesia: General endotracheal plus local with 0.25% Marcaine. Estimated Blood Loss: Less than 5 cc. Specimen: None. Findings: Approximately 4 cm ventral incarcerated omentum containing hernia in the midline periumbil ical position. Complications: None. Implants: Bard Ventralight ST mesh with Echo Positioning System 11.4 cm round when SorbaFix absorbab le fixation tacks used. Disposition: The patient was transferred to recovery room in good condition. Procedure In Detail: After informed consent was obtained, the patient was brought to the operating r oom and prepped and draped in the usual sterile fashion. After adequate anesthesia was achieved, an area of the left upper quadrant was anesthetized with 0.25% Marcaine, sharply incised, and a 5 mm tro car was placed under direct visualization without any complication. Insufflation was obtained to 15 mmHg. At this time, no injury to vital structures upon entry into the abdomen. The abdomen was insp ected at this point, and found to have incarcerated omentum in the midline, which is not reducible wi th manual pressure under insufflation at this point. Additional trocar was placed in the left lower quadrant, similarly anesthetized, sharply incised and a 12 mm trocar was placed under direct visualiz ation without any complication. At this point, a ratcheted grasper was used to grasp the omentum and using external pressure and traction, the omentum was reduced to the peritoneal space. LigaSure was required to reduce some adhesions to the anterior abdominal wall to allow for reduction of the oment um to the normal anatomic position after this was performed. The area was inspected. There was some preperitoneal fat, which required clearance. The LigaSure device was used to clear the preperitonea l fat inferior from the hernia defect in the periumbilical position, down to allow for good landing z one of the mesh eventually. At this point, the hernia defect was sized appropriately and 11.4 cm mes h was chosen and deployed on the back table. At this point, I then brought in the Endo Stitch with a V-Loc and using continuous baseball type suture pattern, I used the V-Loc to close the defect, imbri cating the hernia sac to eliminate the space. At this point, after the hernia defect was closed in its entirety, the area was inspected and good apposition of the tissue was appreciated with the s ac being imbricated. At this point, the 11.[address] mesh was deployed in the midline position and through the central portion of the hernia defect. At this point, the balloon deploymen t system was deployed and the SorbaFix absorbable fixation tacker was used to place a double crown to the anterior abdominal wall with good apposition of the mesh to the anterior abdominal wall. The de ployment system was then removed and found to be intact on the back table. The remaining tacks were then placed in the anterior abdominal wall with good apposition of the mesh to the anterior abdominal wall under desufflation pressure. After this was completed, the abdomen was insufflated to its full pressure at 15 mmHg. The mesh had good apposition and the procedure was opted to be completed at th is point. The patient was positioned slightly left side up and the 12 mm trocar site was closed usin g a Foreign-Vincent suture passer with 0 Vicryl in an interrupted fashion with good approximation of tissues. I then desufflated the abdomen under direct visualization without any complication. The re maining trocars were removed. All skin incisions were then copiously irrigated and closed with a 4-0 Monocryl in a running fashion. Dermabond placed over top. The patient tolerated the procedure well without evidence of complication, transferred back to PACU in good condition. All counts were correct at the end of the case. TK/MODL Voice ID: [id number] Report ID: [id number]
== END 2021-12-30 12:29 | disposition home or self-care (01) ==
LOC: OR 07:03
PROVIDERS: ATTEND Surgery
PROC: 0WUF4JZ Supplement Abdominal Wall with Synthetic Substitute, Percutaneous Endoscopic Approach (ICD-10-PCS; principal; 2021-12-30 08:30)
DX: K43.6 Other and unspecified ventral hernia with obstruction, without gangrene (principal); Z20.822 Contact with and (suspected) exposure to COVID-19
CPT/HCPCS: 85025; 80048; 36415; 81025; 82947 ×4; 49653; U0003; J2704; J1100; J2710; J2765; J1815 ×2; J2250; J3010; J1170 ×2; J0690; J7030; J2405 ×2; C1781